=== PATIENT | male | born 1935 | race Caucasian/White ===

== ENCOUNTER 2016-03-23 18:06 | Emergency (ER) | payer MEDICARE, BC ==
[2015-12-24 13:00] VITALS: BMI 26.9
[~2016-03-23 18:06] MED LIST: ACETAMINOPHEN325 MG PO; ALDACTONE25 MG PO; ASPIRIN325 MG PO; ATROVENT 0.06%15 ML NS; BAYER CHEWABLE81 MG PO; CLARITIN 10 MG10 MG PO; COLACE100 MG PO; FERROUS SULFAT325 MG PO; FLUTICASONE PRO16 GM NS; GAVISCON LIQUI355 ML PO; GLUCOPHAGE500 MG PO; HYDROCODONE-APA1 TAB PO; IMDUR60 MG PO; K-DUR20 MEQ PO; LASIX40 MG PO; LISINOPRIL10 MG PO; METOPROLOL TART50 MG PO; MULTIPLE VITAMI1 TA1 PO; NITRO-DUR0.6 MG TD; NITRO-DUR0.6 MG TRANSDERM; NITROQUICK0.4 MG SL; NORCO 5/325 TAB1 TA1 PO; NORVASC5 MG PO; OYSCO 500+D TAB1 TAB PO; PLAVIX75 MG PO; PRAVACHOL40 MG PO; PREDNISONE1 MG PO; PREDNISONE10 MG PO; PREDNISONE5 MG PO; PRINZIDE 20-251 TA1 PO; PROTONIX40 MG PO; RANEXA500 MG PO; TOPROL XL50 MG PO; TYLENOL325 MG PO; VITAMIN B COMPL1 TA1; VITAMIN B COMPL1 TAB PO; ZESTORETIC 10/11 TAB PO; ZESTORETIC 20/21 TAB PO
[2016-03-23 19:37] LABS: APPEARANCE CLEAR (CLEAR); BILIRUBIN NEGATIVE (NEGATIVE); COLOR YELLOW (YELLOW); GLUCOSE NEGATIVE (NEGATIVE); KETONE NEGATIVE (NEGATIVE); LEUKOCYTE ESTERASE NEGATIVE (NEGATIVE); NITRITE NEGATIVE (NEGATIVE); PROTEIN TRACE mg/dL (NEGATIVE); SPECIFIC GRAVITY 1.015 (1.005-1.020); UROBILINOGEN NORMAL (NORMAL)
[2016-03-23 19:39] LABS: BASOPHILS 0.3 % (0.0-2.0); EOSINOPHILS 2.4 % (0-7); HEMATOCRIT 32.7 % (42.0-54.0); HEMOGLOBIN 10.9 g/dL (13.5-17.5); IMMATURE GRANULOCYTES 0.5 % (0-5); LYMPHOCYTES 9.4 % (15-50); MCH 31.1 pg (26.0-34.0); MCHC 33.3 g/dL (31.0-37.0); MCV 93.4 fL (80.0-100.0); MEAN PLATELET VOLUME 9.6 fL (7.4-10.4); MONOCYTES 13.9 % (2-11); NEUTROPHILS 73.5 % (40-80); PLATELET COUNT 264 10x3/uL (130-400); RDW 13.8 % (11.5-14.5); WBC 10.7 10x3/uL (4.8-10.8)
[2016-03-23 19:58] LABS: ALBUMIN 3.6 g/dL (3.4-5.0); ANION GAP 12.5 mmol/L (8-16); BILIRUBIN - TOTAL 0.29 mg/dL (0.2-1.3); CARBON DIOXIDE 29.4 mmol/L (21.0-32.0); CREATININE - SERUM 1.6 mg/dL (0.6-1.3); POTASSIUM - SERUM 4.9 mmol/L (3.5-5.1); PROTEIN - SERUM 6.5 g/dL (6.4-8.2)
== END 2016-03-23 20:10 | disposition home or self-care (01) ==
LOC: D.ER 18:06
PROVIDERS: Family Medicine
DX: M94.0 Chondrocostal junction syndrome [Tietze] (principal); I25.10 Atherosclerotic heart disease of native coronary artery without angina pectoris; I42.9 Cardiomyopathy, unspecified; I50.9 Heart failure, unspecified; E11.9 Type 2 diabetes mellitus without complications; I21.4 Non-ST elevation (NSTEMI) myocardial infarction; G47.30 Sleep apnea, unspecified

== ENCOUNTER 2016-04-18 09:11 | Outpatient (CLI) | payer MEDICARE, BC ==
[~2016-04-18] VITALS: Ht 170.2 cm; Wt 79.1 kg
--- NOTE | ~2016-04-18 | HEMODYNAMI ---
PATIENT:TONY OCAMPO MEDICAL RECORD: [id number] : 33 LOCATION:[facility] ADMISSION DATE: 04/18/16 Generatedon:04/18/201615:01 Patient name: TONY OCAMPO Patient #: [id number] SSN: [id number] : 1935 Date of study: 04/18/2016 Page: Of Hemodynamic Procedure Report Patient Data Patient Demographics Procedure consent was obtained First Name: TONY Gender: Male Last Name: TERRENCE : 1935 [facility] Initial: GENE Age: 80 year(s) Patient #: [id number] Race: SSN: [id number] Additional ID: [id number] Contact details Address: [address] [place] [address] [facility] State: [place] City: [facility] Zip code: [address] Past Medical History History of disease Date Diagnosis Comments Peripheral vascular disease Allergies Allergen Reaction Date Comments Reported Penicillins 06/01/2015 Sulfa drugs 06/01/2015 Codeine 06/01/2015 Codeine 12/24/2015 Penicillins 12/24/2015 Sulfa drugs 12/24/2015 Other allergy 04/18/2016 PCN, codeine, Sulfa Admission Admission Data Admission Date: 04/18/2016 Admission Time: 9:11 Height (in.): 67 BSA: 1.91 (m2) Height (cm.): 170.18 BMI: 27.25 (kg/m2) Weight (lbs.): 174 Weight (kg.): 78.93 Lab Results Lab Result Date: 04/18/2016 Lab Result Time: 0:00 Biochemistry Name Units Result Min Max BUN mg/dl 24 --(----)-* 7 18 Creatinine mg/dl 1.4 --(----)*- 0.6 1.3 CBC Name Units Result Min Max Hemoglobin g/dl 9.9 *-(----)-- 13.5 17.5 Procedure Procedure Types Cath Procedure Diagnostic Procedure [facility] w/Coronaries w/Grafts PCI Procedure SVG-BMS/KARINA Initial Miscellaneous Procedures Moderate Sedation up to 15 minutes Procedure Description Procedure Date Procedure Date: 04/18/2016 Procedure Start Time: 14:41 Procedure End Time: 15:00 Procedure Staff Name Function Rao Quach MD Performing Physician Daisha Sanchez RT Scrub Melvi Puga RN Nurse Tom Meier RT Creative Assistant Janeth Zavala RT Monitor Procedure Data Cath Procedure Fluoroscopy Diagnostic fluoroscopy Total fluoroscopy Time: 5.1 time: 5.1 min min Diagnostic fluoroscopy Total fluoroscopy dose: 593 dose: 593 mGy mGy Contrast Material Contrast Material Type Amount (ml) Isovue 300 127 Entry Location Entry Primary Successful Side Size Upsize Upsize Entry Closure Succes sful Closure Location (Fr) 1 (Fr) 2 (Fr) Remarks Device Remarks Femoral Right 5 Fr 6 Fr artery Short Estimated blood loss: 10 ml Diagnostic catheters Device Type Used For End Catheter Placement Cordis 5Fr Pigtail LV Angiography Catheter (MP) Cordis 5Fr JL 4.0 Procedure Catheter (MP) Cordis Infinity 5Fr AR 2 Procedure MOD catheter Procedure Complications No complications Procedure Medications Medication Administration Route Dosage Oxygen NC 2 l/min Heparin Flush Bag added to field 2 bags (1000units/500ml NS) Lidocaine 2% added to field 20 Benadryl I.V. 50 mg Versed I.V. 1 mg Fentanyl I.V. 50 mcg Versed I.V. 1 mg Fentanyl I.V. 50 mcg Heparin Bolus I.V. 4000 units Hemodynamics Rest BSA: 1.91 (m2) HGB: 9.9 (g/dl) O2 Consumption: Estimated: 212.6 (ml/min) O2 Cons umption indexed: Estimated:111.31 (ml/min/m) Heart Rate: 63 (bpm) Pressure Samples Time Site Value (mmHg) Purpose Heart Use Rate(bpm) 14:44 LV 146/27,35 Snapshot 63 14:44 AO 130/11(52) Snapshot 63 Snapshots Pre Cath Intra NCS Post Cath Vital Signs Time Heart Resp SPO2 NIBP (mmHg) Rhythm Pain Sedation Rate (ipm) (%) Status Level (bpm) 14:31:32 65 13 99 154/72(125) NSR 0 (11) 10(A) , No pain 14:35:56 60 16 100 158/73(126) NSR 0 (11) 10(A) , No pain 14:40:14 62 16 100 138/62(109) NSR 0 (11) 9(A) , No pain 14:44:36 62 16 100 128/50(100) NSR 0 (11) 9(A) , No pain 14:48:50 65 18 98 127/70(106) NSR 0 (11) 9(A) , No pain 14:53:04 65 16 99 128/67(96) NSR 0 (11) 9(A) , No pain 14:57:18 65 14 99 130/69(100) NSR 0 (11) 9(A) , No pain 14:58:55 66 16 99 123/62(93) NSR 0 (11) 9(A) , No pain Medications Time Medication Route Dose Verified Delivered Reason Notes Effectiveness by by 14:35:00 Oxygen NC 2 Rao Melvi Per physician l/min Main Puga RN 14:35:08 Heparin Flush added 2 Rao Rao used for Bag to bags Main Quach MD procedure (1000units/500ml field NS) 14:35:13 Lidocaine 2% added 20ml Rao Rao used for to vial Main Quach MD procedure field 14:35:23 Benadryl I.V. 50 mg Rao Rao Per physician Main Quach MD 14:35:34 Versed I.V. 1 mg Rao Melvi for sedation Main Puga RN 14:35:40 Fentanyl I.V. 50 Rao Melvi for sedation mcg Main Puga RN 14:38:52 Versed I.V. 1 mg Rao Melvi for sedation Main Puga RN 14:38:55 Fentanyl I.V. 50 Rao Melvi for sedation mcg Main Puga RN 14:52:16 Heparin Bolus I.V. 4000 Rao Melvi for dose units Main Puga RN anticoagulation verified with dr quach Procedure Log Time Note 14:24:01 Patient Height : 170.18 inches 14:24:11 Patient Weight : 78.93 lbs 14:24:35 Lab Result : Creatinine 1.4 mg/dl 14:24:35 Lab Result : BUN 24 mg/dl 14:24:35 Lab Result : Hemoglobin 9.9 g/dl 14:25:14 Diagnostic Cath status Elective 14:25:21 Tom Meier RT(R) sent for patient. Start room use. 14:25:24 Time tracking: Regular hours 14:25:29 Plan of Care:Hemodynamics will remain stable., Cardiac rhythm will remain stable., Comfort level will be maintained., Respiratory function will remain adequate., Patient/ family verbilizes understanding of procedure., Procedure tolerated without complication., Recovers from procedure without complications.. 14:30:14 Vital chart was started 14:32:56 Patient received from Outpatients to CCL 1 Alert and oriented. Tansferred to table in Supine position. 14:32:58 Warm blankets applied, and perla hugger turned on for patient comfort. 14:32:58 Correct patient and procedure confirmed by team. 14:33:02 Signed procedure consent form obtained from patient. 14:33:03 ECG and BP/O2 sat monitors applied to patient. 14:33:05 Baseline sample Acquired. 14:33:09 Rhythm: sinus rhythm 14:33:11 Full Disclosure recording started 14:33:24 H&P Date Dictated: 04/16/2016 Within 30 days and on chart., H&P Addendum completed by physician on day of procedure. (MUST COMPLETE FOR ALL OUTPATIENTS). 14:33:27 Pre-procedure instructions explained to patient. 14:33:29 Family in waiting room. 14:33:31 Patient NPO since Midnight. 14:33:52 Patient allergic to Other allergyPCN, codeine, Sulfa 14:33:58 Is the patient allergic to Iodine/contrast media? No. 14:34:05 Is patient on blood thinner?Yes 14:34:22 ACC The patient was administered the following blood thiners within the last 24 hours: ACCPlavix 14:34:23 Patient diabetic? Yes. 14:34:25 If diabetic: On Metformin? No 14:34:35 Snore? Yes 14:34:36 Sleep apnea? Unknown 14:34:38 Deviated septum? No 14:34:40 Opens mouth fully? Yes 14:34:47 Dentures? Unknown ? 14:34:50 Patient pain scale 0/10 ?. 14:35:00 Oxygen 2 l/min NC was given by Mlevi Portland RN; Per physician; 14:35:00 IV patent on arrival in left hand with 0.9% NaCl at [facility]. 14:35:08 Heparin Flush Bag (1000units/500ml NS) 2 bags added to field was given by Rao Quach MD; used for procedure; 14:35:08 Lab results completed and on chart. 14:35:12 Right groin area was prepped with chlora-prep and draped in sterile fashion 14:35:13 Lidocaine 2% 20ml vial added to field was given by Rao Quach MD; used for procedure; 14:35:16 Alarms reviewed by R. N. 14:35:18 Sharps counted by scrub and verified by R.N. 14:35:20 Physician arrived 14:35:21 --------ALL STOP TIME OUT------ 14:35:21 Final Timeout: patient, procedure, and site verified with staff and physician. All members of the team are in agreement. 14:35:23 Benadryl 50 mg I.V. was given by Rao Quach MD; Per physician; 14:35: Right groin site verified by team. 14:35:34 Versed 1 mg I.V. was given by Melvi Puga RN; for sedation; 14:35:34 Physical assessment completed. ASA score P 2 - A patient with mild systemic disease as per Rao Quach MD. 14:35:39 Sedation plan: IV Moderate Sedation Versed, Fentanyl 14:35:40 Fentanyl 50 mcg I.V. was given by Melvi Puga RN; for sedation; 14:38:52 Versed 1 mg I.V. was given by Melvi Puga RN; for sedation; 14:38:55 Fentanyl 50 mcg I.V. was given by Melvi Puga RN; for sedation; 14:41:23 Use device set Femoral Dx 14:41:26 Procedure started. 14:41:32 Local anesthetic to right femoral artery with Lidocaine 2% by Rao Quach MD.INITIAL ACCESS ONLY 14:41:44 Acist Syringe opened to sterile field. 14:41:45 Bag Decanter opened to sterile field. 14:41:45 Cardinal Cath Pack opened to sterile field. 14:41:46 Terumo 5Fr [place] Sheath opened to sterile field. 14:41:46 St Carlos 260cm J .035 wire opened to sterile field. 14:41:48 Acist Hand Control opened to sterile field. 14:41:48 Acist Manifold opened to sterile field. 14:41:54 Tegaderm 4 x 4 opened to sterile field. 14:43:05 A 5 Fr sheath was inserted into the Right Femoral artery 14:44:02 A Cordis 5Fr Pigtail Catheter (MP) was advanced over the wire and used for LV Angiography. 14:44:08 LV hemodynamics recorded. 14:44:14 LV gram done using HOUGH 14:45:06 EF : 55 % 14:45:09 Catheter removed. 14:45:29 A Cordis 5Fr JL 4.0 Catheter (MP) was advanced over the wire and used for Procedure. 14:47:23 A Cordis Infinity 5Fr AR 2 MOD catheter was advanced over the wire and used for Procedure. 14:48:15 RCA angiography performed. 14:49:12 SVG to RCA angiography performed. 14:50:08 Terumo 6Fr [place] Sheath opened to sterile field. 14:50:08 Atmail BasixCompak Inflation Kit opened to sterile field. 14:50:09 Smiley Whisper J 300cm 0.014 guide wire opened to sterile field. 14:50:17 Catheter exchanged over wire. 14:50:34 Sheath upsized to a 6 Fr Short. 14:50:59 6 Fr MB1 guide catheter was inserted over the wire 14:51:09 Medtronic Launcher 6Fr MB 1 guide catheter opened to sterile field. 14:51:43 Whisper wire advanced. 14:52:16 Heparin Bolus 4000 units I.V. was given by Melvi Puga RN; for anticoagulation; dose verified with dr quach 14:52:25 Wire advanced across lesion. 14:55:10 Inflation Number: 1 A Medtronic Resolute 4.0 X 18 stent was prepped and advanced across the Mid RCA. The stent was deployed at 21 NILAM for 0:10 (min:sec). 14:57:34 Vascade 6/7 Fr Closure Device opened to sterile field. 14:57:41 Guide catheter removed. 14:57:55 Procedure ended.(Physican Out) 14:58:14 Fluoroscopy time 05.10 minutes. 14:58:20 Fluoroscopy dose: 593 mGy 14:58:20 Flurop Dose total: 593 14:58:25 Contrast amount:Isovue 300 127ml. 14:58:26 Sharps counted by scrub and verified by R.N. 14:58:28 Insertion/operative site no bleeding no hematoma. 14:58:33 Post-procedure physical assessment completed. ASA score P 2 - A patient with mild systemic disease as per Rao Quach MD. 14:58:38 Post procedure rhythm: unchanged. 14:58:40 Estimated blood loss: 10 ml 14:58:42 Post procedure instruction explained to patient.Patient verbalizes understanding. 14:59:13 Procedure type changed to Cath procedure, Diagnostic procedure, LHC, LHC w/Coronaries w/Grafts, PCI procedure, SVG-BMS/KARINA Initial, Miscellaneous Procedures, Moderate Sedation up to 15 minutes 14:59:18 Procedure and supply charges have been captured, reviewed, submitted and are correct. 14:59:47 Procedure Complication : No complications 14:59:51 Vital chart was stopped 14:59:53 See physician's report for complete and final results. 15:00:05 Report given to Outpatients. 15:00:09 Patient transfered to Outpatients with Stretcher. 15:00:11 Procedure ended. 15:00:11 Full Disclosure recording stopped 15:00:18 End room use (Document Last) 15:00:18 End room use (Document Last) Intervention Summary Intervention Notes Time ActionType Lesion and Equipment Action# Pressure Duration Attributes Used 14:55:10 Place stent Mid RCA Medtronic 1 21 00:10 Resolute 4.0 X 18 stent Device Usage Item Name Manufacture Quantity Catalog Hospital Part Current [facility] l Lot# / Number Charge Number Stock Stock Serial# Code Acist Acist 1 [id number] 075850 361398 091303 20 Syringe Medical Systems Inc Bag Microtek 1 2002S 779787 14167 720316 5 Tapatap. Cardinal Cardinal [address] 510524 61471 491049 5 [place] Terumo 5Fr Terumo 1 [id number] 344981 038354 692447 [address] Carlos 1 319579 788978 630315 347642 30 260cm J .035 wire Acist Hand Acist 1 28128 459646 127766 484396 5 Control Medical Systems Inc Acist Acist 1 68692 822678 239357 449086 5 Alex and Ani Medical Systems Inc Tegaderm 4 3M 1 1626W 610234 150519 642884 5 x 4 Cordis Cardinal 1 FR7191 388954 90314 879655 30 Infinity Health 5Fr Multipack catheter Cordis 5Fr Cardinal 1 962780 5 3DRC Health Catheter (MP) Cordis 5Fr Cardinal 1 124463 5 Pigtail Health Catheter (MP) Cordis 5Fr Cardinal 1 531954 5 JL 4.0 Health Catheter (MP) Cordis Cardinal 1 [id number] 331606 851141 728243 20 Infinity Health 5Fr AR 2 MOD catheter Terumo 6Fr Terumo 1 [id number] 253203 401651 470806 40 [place] Sheath Merit Merit 1 [id number] 695737 942978 128041 15 BasixCoContestk Medical Inflation Kit Smiley Smiley 1 [id number] 205119 426265 516819 5 Whisper J Vascular 300cm 0.014 guide wire Medtronic Medtronic 1 [id number] 913078 57601 752110 1 Launcher 6Fr MB 1 guide catheter Medtronic Medtronic 1 [id number] 316620 810737 0 [id number] Resolute 4.0 X 18 stent Vascade 08/20 Cardiva 1 [id number] 315162 184977 100086 5 Fr Closure Medical, Device Inc. Signature Audit [place] Stage Time Signature Unsigned Intra-Procedure 04/18/2016 Janeth Zavala 3:00:57 PM RT(R) Signatures Monitor : Janeth Zavala Signature : RT Date : Time : [facility] [address] [place] [address]
[2016-04-18 11:02] LABS: BASOPHILS 0.4 % (0.0-2.0); EOSINOPHILS 3.1 % (0-7); HEMATOCRIT 30.6 % (42.0-54.0); HEMOGLOBIN 9.9 g/dL (13.5-17.5); IMMATURE GRANULOCYTES 0.2 % (0-5); LYMPHOCYTES 8.4 % (15-50); MCH 30.8 pg (26.0-34.0); MCHC 32.4 g/dL (31.0-37.0); MCV 95.3 fL (80.0-100.0); MEAN PLATELET VOLUME 9.5 fL (7.4-10.4); NEUTROPHILS 78.9 % (40-80); RBC 3.21 10x6/uL (4.20-6.10); RDW 13.7 % (11.5-14.5); WBC 8.1 10x3/uL (4.8-10.8)
[2016-04-18 11:05] LABS: PLATELET COUNT 202 10x3/uL (130-400)
[2016-04-18 11:12] LABS: ANION GAP 12.2 mmol/L (8-16); CALCIUM 9.4 mg/dL (8.5-10.1); CARBON DIOXIDE 28.2 mmol/L (21.0-32.0); CREATININE - SERUM 1.4 mg/dL (0.6-1.3); POTASSIUM - SERUM 4.4 mmol/L (3.5-5.1)
[2016-04-18 12:27] VITALS: BP 128/64; Ht 170.2 cm; Wt 79.1 kg
--- NOTE | 2016-04-18 17:25 | NUR ---
1515 BACK FROM HEART CATH STENT. SLEEPY BUT ROUSES. RESP EVEN AND NONLABORED. RT GROIN DRESSING C/D/I NO BLEEDING PPX2 LEFT WEAK.
--- NOTE | 2016-04-18 17:46 | NUR ---
1715 RT GROIN DRESSING C/D/I NO BLEEDING OR HEMATOMA PPX2 RT.
--- NOTE | 2016-04-18 17:46 | NUR ---
2525 RT GROIN DRESSING C/D/I NO BLEEDING PPX2. AREA SOFT TO TOUCH. TOLERATING DIET AND LIQUIDS.-
--- NOTE | 2016-04-18 18:10 | NUR ---
1800 TOLERATED DIET REQUESTED COFFEE AND SERVED. KEEPING RT LEG STRAIGHT AREA SOFT NO BLEEDING OR HEMATOMA PPX2.
--- NOTE | 2016-04-18 19:04 | NUR ---
1845 HOB ELVATED. IV DCD CATHETER INTACT WENT OVER DISCHARGE INSTRUCTIONS AND VERBALLY UNDERSTANDS.1900 UP AND VOIDED.
--- NOTE | 2016-04-18 19:15 | NUR ---
1915 TO HOME VIA W/C WITH FAMILY.
--- NOTE | 2016-04-24 13:59 | OP ---
PATIENT NAME: TONY OCAMPO MEDICAL RECORD: [id number] :33 LOCATION:[facility] ADMISSION DATE: SURGEON: DAVINA MOONEY MD DATE OF OPERATION: 04/18/2016 PROCEDURES: 1. PTCA stent, vein graft to the RCA. 2. Left heart catheterization. 3. Selective coronary angiography. 4. Left ventriculogram. 5. Vein graft angiography. INDICATION: Angina and coronary artery disease. PROCEDURE IN DETAIL: After informed consent was obtained and after detailed explanation of risks, benefits as well as alternative therapies, the patient elected to proceed with angiogram and angioplasty. The right femoral area was prepped and draped in normal sterile fashion. The right femoral artery was cannulated via modified Seldinger technique with placement of 6-Jordanian sheath. All catheters exchanged through this sheath. FINDINGS: The left ventriculogram was performed in standard 30-degree HOUGH view, reveals preserved cardiac wall motion, ejection fraction of 50%. SELECTIVE CORONARY ANGIOGRAPHY: 1. Left main showed no significant angiographic disease. 2. Left anterior descending is totally occluded after the first diagonal, first diagonal is widely patent. 3. Left circumflex is totally occluded. 4. Vein graft to the circumflex is totally occluded. 5. Vein graft to the LAD is widely patent with no significant disease. 6. Right coronary is totally occluded. 7. Vein graft to the right coronary is widely patent; however, there is 70% to 80% stenosis in the proximal shaft. The previously placed stents are widely patent. PTCA STENT OF THE RIGHT CORONARY VEIN GRAFT: The stent used of 4.0 x 18 mm Resolute taken to 21 atmospheres. Result was 0% residual stenosis. OVERALL IMPRESSION: Successful percutaneous transluminal coronary angioplasty stent of the vein graft to the right coronary artery going from 70% to 80% initial stenosis to 0% residual. TRANSINT:[id number] Voice Confirmation ID: [id number] DOCUMENT ID: [id number] DAVINA MOONEY MD at 1359 CC: [id number] DICTATION DATE: 04/18/16 1459 CARPENTRY INSTRUCTOR: 04/18/162031 DEP CLI 04/18/16 [place] [id number]
== END 2016-04-18 19:15 | disposition home or self-care (01) ==
LOC: D.CATH 09:11
PROVIDERS: Internal Medicine Interventional Cardiology
DX: I25.119 Atherosclerotic heart disease of native coronary artery with unspecified angina pectoris (principal); I25.719 Atherosclerosis of autologous vein coronary artery bypass graft(s) with unspecified angina pectoris
CPT/HCPCS: 93459; C9604

== ENCOUNTER 2016-04-27 16:22 | Observation (INO) | payer MEDICARE, BC ==
[~2016-04-27] VITALS: Ht 170.2 cm; Wt 70.9 kg
--- NOTE | ~2016-04-27 | HEMODYNAMI ---
PATIENT:TONY OCAMPO MEDICAL RECORD: [id number] : 33 LOCATION[id number] ADMISSION DATE: 04/27/16 Generatedon:04/28/201616:32 Patient name: TONY OCAMPO Patient #: [id number] SSN: [id number] : 1935 Date of study: 04/28/2016 Page: Of Hemodynamic Procedure Report Patient Data Patient Demographics Procedure consent was obtained First Name: TONY Gender: Male Last Name: TERRENCE : 1935 [facility] Initial: GENE Age: 80 year(s) Patient #: [id number] Race: SSN: [id number] Additional ID: [id number] Contact details Address: [address] [place] [address] [facility] State: [place] City: [facility] Zip code: [address] Past Medical History History of disease Date Diagnosis Comments Peripheral vascular disease Allergies Allergen Reaction Date Comments Reported Penicillins 06/01/2015 Sulfa drugs 06/01/2015 Codeine 06/01/2015 Codeine 12/24/2015 Penicillins 12/24/2015 Sulfa drugs 12/24/2015 Other allergy 04/18/2016 PCN, codeine, Sulfa Penicillins 04/28/2016 Sulfa drugs 04/28/2016 Codeine 04/28/2016 Admission Admission Data Admission Date: 04/27/2016 Admission Time: 18:50 Room #: D.2120 Lab Results Lab Result Date: 04/28/2016 Lab Result Time: 0:00 Biochemistry Name Units Result Min Max BUN mg/dl 31 --(----)-* 7 18 Creatinine mg/dl 1.6 --(----)-* 0.6 1.3 CBC Name Units Result Min Max Hemoglobin g/dl 10.3 *-(----)-- 13.5 17.5 Procedure Procedure Types Cath Procedure Diagnostic Procedure LHC LHC w/Coronaries w/Grafts Procedure Description Procedure Date Procedure Date: 04/28/2016 Procedure Start Time: 16:04 Procedure End Time: 16:30 Procedure Staff Name Function Adirel White MD Performing Physician Jnaeth Zavala RT Scrub Melvi Puga RN Nurse Jovan Gutierrez RT Monitor Alvin Montgomery RN Monitor Procedure Data Cath Procedure Fluoroscopy Diagnostic fluoroscopy Total fluoroscopy Time: 5.6 time: 5.6 min min Diagnostic fluoroscopy Total fluoroscopy dose: dose: 547.72 mGy 547.72 mGy Contrast Material Contrast Material Type Amount (ml) Isovue 300 83 Entry Location Entry Primary Successful Side Size Upsize Upsize Entry Closure Succes sful Closure Location (Fr) 1 (Fr) 2 (Fr) Remarks Device Remarks Femoral Right 5 Fr Exoseal artery Diagnostic catheters Device Type Used For End Catheter Placement Cordis 5Fr JL 4.0 Left Coronary Catheter (MP) Angiography Cordis Infinity 5Fr AR SVG Angiography MOD Catheter Cordis Infinity 5Fr IM SVG Angiography catheter Cordis 5Fr Pigtail LV Angiography Catheter (MP) Procedure Complications No complications Procedure Medications Medication Administration Route Dosage Oxygen NC 2 l/min Heparin Flush Bag added to field 2 bags (1000units/500ml NS) 0.9% NaCl I.V. 100 ml/hr Fentanyl I.V. 50 mcg Versed I.V. 1 mg Versed I.V. 0.5 mg Fentanyl I.V. 25 mcg Fentanyl I.V. 25 mcg Versed I.V. 0.5 mg Hemodynamics Rest HGB: 10.3 (g/dl) Heart Rate: 60 (bpm) Pressure Samples Time Site Value (mmHg) Purpose Heart Use Rate(bpm) 16:23 LV 142/23,32 EDP 66 16:24 AO 134/59(88) Pullback 66 Gradients Valve Time Site Site 2 Mean SEP/DFP Peak To Heart Use 1 (mmHg) (sec/min) Peak Rate (mmHg) (bpm) Aortic 16:24 LV AO 9 22 66 134/59(88) Calculations Valve P-P Mean Valve Index Valve Source Name Gradient Area Flow (cm2) Aortic 9 9 Snapshots Pre Cath Intra NCS Post Cath Vital Signs Time Heart Resp SPO2 NIBP (mmHg) Rhythm Pain Sedation Rate (ipm) (%) Status Level (bpm) 15:46:29 61 17 100 157/71(127) NSR 0 (11) 10(A) , No pain 15:50:56 60 16 100 144/72(122) NSR 0 (11) 10(A) , No pain 15:55:20 62 17 100 155/75(127) NSR 0 (11) 10(A) , No pain 15:59:17 63 16 100 126/86(109) NSR 0 (11) 10(A) , No pain 16:03:27 62 17 98 125/73(110) NSR 0 (11) 10(A) , No pain 16:07:37 59 17 98 142/71(116) NSR 0 (11) 9(A) , No pain 16:11:53 67 18 96 126/74(118) NSR 0 (11) 9(A) , No pain 16:17:00 70 17 96 142/62(106) NSR 0 (11) 9(A) , No pain 16:21:19 68 18 96 129/65(94) NSR 0 (11) 9(A) , No pain 16:25:30 68 18 98 133/69(98) NSR 0 (11) 9(A) , No pain 16:29:42 66 6 152/74(110) NSR 0 (11) 9(A) , No pain Medications Time Medication Route Dose Verified Delivered Reason Notes Effec tiveness by by 16:00:21 Oxygen NC 2 Melvi Melvi Per l/min Edd Puga RN physician RN 16:00:32 Heparin Flush added 2 Melvi Melvi used for Bag to bags Edd Puga RN procedure (1000units/500ml field RN NS) 16:00:57 0.9% NaCl I.V. 100 Melvi Melvi Per ml/hr Edd Puga RN physician RN 16:01:14 Fentanyl I.V. 50 Melvi Melvi for mcg Edd Puga RN sedation RN 16:01:21 Versed I.V. 1 mg Melvi Melvi for Edd Puga RN sedation RN 16:04:16 Versed I.V. 0.5 Melvi Melvi for mg Edd Puga RN sedation RN 16:04:23 Fentanyl I.V. 25 Melvi Melvi for mcg Edd Puga RN sedation RN 16:11:19 Fentanyl I.V. 25 Melvi Melvi for mcg Edd Puga RN sedation RN 16:11:26 Versed I.V. 0.5 Melvi Melvi for mg Edd Puga RN sedation surveying technician Log Time Note 15:15:12 Janeth Zavala RT(R) sent for patient. Start room use. 15:45:07 ACC Patient presents with Unstable Angina CCS Anginal Class 3--Marked limitation of physical activity, angina occurs with ordinary activity.. 15:45:09 Diagnostic Cath status Urgent 15:45:10 Vital chart was started 15:45:19 Time tracking: Regular hours 15:45:26 Plan of Care:Hemodynamics will remain stable., Cardiac rhythm will remain stable., Comfort level will be maintained., Respiratory function will remain adequate., Patient/ family verbilizes understanding of procedure., Procedure tolerated without complication., Recovers from procedure without complications.. 15:45:30 Patient received from PCU to CCL 3 Alert and oriented. Tansferred to table in Supine position. 15:45:31 Warm blankets applied, and perla hugger turned on for patient comfort. 15:45:32 Correct patient and procedure confirmed by team. 15:45:33 Signed procedure consent form obtained from patient. 15:45:35 ECG and BP/O2 sat monitors applied to patient. 15:45:36 Baseline sample Acquired. 15:45:39 Rhythm: sinus rhythm 15:45:40 Full Disclosure recording started 15:45:47 H&P Date Dictated: 04/27/2016 Within 30 days and on chart.. 15:45:48 Pre-procedure instructions explained to patient. 15:45:48 Pre-op teaching completed and patient verbalized understanding. 15:45:50 Family in waiting room. 15:45:51 Patient NPO since Midnight. 15:47:51 Patient allergic to Penicillins 15:47:56 Patient allergic to Sulfa drugs 15:48:01 Patient allergic to Codeine 15:48:06 Is the patient allergic to Iodine/contrast media? No. 15:48:10 Is patient on blood thinner?Yes 15:48:12 ACC The patient was administered the following blood thiners within the last 24 hours: ACCPlavix 15:52:21 Patient diabetic? No. 15:52:22 ----Pre-sedation anethsthesia assessment.---- 15:52:24 Previous problem with sedation/anesthesia? No ? 15:52:26 Snore? Yes 15:52:27 Sleep apnea? Yes 15:52:28 Deviated septum? No 15:52:30 Opens mouth fully? Yes 15:52:31 Sticks out tongue? Yes 15:52:33 Airway obstruction? Yes ? 15:52:41 Dentures? Yes in tight 15:52:45 Pre procedure: right dorsailis pedis pulse 1+ Palpable, but thready & weak; easily obliterated 15:53:25 Patient pain scale 0/10 ?. 15:53:57 Lab Result : BUN 31 mg/dl 15:53:57 Lab Result : Creatinine 1.6 mg/dl 15:53:57 Lab Result : Hemoglobin 10.3 g/dl 15:54:01 Lab results completed and on chart. 15:54:03 Right groin area was prepped with chlora-prep and draped in sterile fashion 15:54:04 Alarms reviewed by R. N. 15:54:05 Sharps counted by scrub and verified by R.N. 15:54:06 --------ALL STOP TIME OUT------ 15:54:07 Final Timeout: patient, procedure, and site verified with staff and physician. All members of the team are in agreement. 15:54:08 Right groin site verified by team. 15:54:11 Physical assessment completed. ASA score P 2 - A patient with mild systemic disease as per Adriel White MD. 15:54:15 Sedation plan: IV Moderate Sedation Versed, Fentanyl 15:55:56 Use device set Femoral Dx 15:55:56 Acist Syringe opened to sterile field. 15:55:57 Bag Decanter opened to sterile field. 15:55:57 Medline Cath Pack opened to sterile field. 15:55:58 Terumo 5Fr [place] Sheath opened to sterile field. 15:55:58 St Carlos 260cm J .035 wire opened to sterile field. 15:56:00 Acist Hand Control opened to sterile field. 15:56:00 Acist Manifold opened to sterile field. 15:56:01 Cordis Infinity 5Fr Multipack catheter opened to sterile field. 15:56:02 Tegaderm 4 x 4 opened to sterile field. 15:58:09 Zero performed for pressure channel P1 15:59:25 IV started by Melvi Puga RN inleft antecubital with a 22 gauge IV catheter with 0.9% NaCl at 10ml/hr. 16:00:21 Oxygen 2 l/min NC was given by Melvi Puga RN; Per physician; 16:00:32 Heparin Flush Bag (1000units/500ml NS) 2 bags added to field was given by Melvi Puga RN; used for procedure; 16:00:57 0.9% NaCl 100 ml/hr I.V. was given by Melvi Puga RN; Per physician; 16:01:14 Fentanyl 50 mcg I.V. was given by Melvi Puga RN; for sedation; 16:01:21 Versed 1 mg I.V. was given by Melvi Puga RN; for sedation; 16:01:49 IV Extension Set opened to sterile field. 16:02:04 STOPCOCK 3-WAY LARGE BORE opened to sterile field. 16:02:39 alvin in for melvi 16:04:16 Versed 0.5 mg I.V. was given by Melvi Puga RN; for sedation; 16:04:16 Procedure started. 16:04:23 Fentanyl 25 mcg I.V. was given by Melvi Puga RN; for sedation; 16:04:30 Local anesthetic to right femoral artery with Lidocaine 2% by Adriel White MD.INITIAL ACCESS ONLY 16:04:38 A 5 Fr sheath was inserted into the Right Femoral artery 16:09:23 A Cordis 5Fr JL 4.0 Catheter () was advanced over the wire and used for Left Coronary Angiography. 16:09:55 LCA angiography performed. 16:11:05 Catheter removed. 16:11:19 Fentanyl 25 mcg I.V. was given by Melvi Puga RN; for sedation; 16:11:26 Versed 0.5 mg I.V. was given by Melvi Puga RN; for sedation; 16:12:01 A Cordis Infinity 5Fr AR MOD Catheter was advanced over the wire and used for SVG Angiography. 16:19:58 SVG to RCA angiography performed. 16:20:00 RCA angiography performed. 16:20:05 SVG angiography performed. 16:20:09 Catheter removed. 16:20:19 A Cordis Infinity 5Fr IM catheter was advanced over the wire and used for SVG Angiography. 16:20:51 injecting the CARLOS 16:23:25 Catheter removed. 16:23:31 A Cordis 5Fr Pigtail Catheter (MP) was advanced over the wire and used for LV Angiography. 16:23:35 LV angiography performed. 16:23:36 LV hemodynamics recorded. 16::41 Injector settings: Ml/sec: 5, Volume: 15, 16:23:55 EF : 50 % 16:24:14 Catheter removed. 16:24:39 Sheath removed intact; hemostasis achieved with Exoseal to the Right Femoral artery. 16::41 Procedure ended.(Physican Out) 16:24:50 Fluoroscopy time 05.60 minutes. 16:24:58 Flurop Dose total: 547.72 16:24:58 Fluoroscopy dose: 547.72 mGy 16:28:29 Contrast amount:Isovue 300 83ml. 16:28:45 Sharps counted by scrub and verified by R.N. 16:28:48 Insertion/operative site no bleeding no hematoma. 16:28:50 Post-op/insertion site Right Femoral artery dressed using a 4 x 4 and Tegaderm. 16:28:54 Post right femoral artery:stable 16:28:57 Post Procedure Pulses reassessed and unchanged 16:28:59 Post procedure: left dorsailis pedis pulse 0-Absent. 16:29:00 Post procedure: right dorsailis pedis pulse 1+ Palpable, but thready & weak; easily obliterated. 16:29:04 Post procedure rhythm: sinus rhythm 16:29:06 Post procedure instruction explained to patient.Patient verbalizes understanding. 16:30:07 Cordis 5Fr Exoseal opened to sterile field. 16:30:11 Procedure and supply charges have been captured, reviewed, submitted and are correct. 16:30:41 Procedure Complication : No complications 16:30:44 Vital chart was stopped 16:30:46 See physician's report for complete and final results. 16:30:48 Report given to PCU. 16:30:50 Patient transfered to PCU with Bed. 16:30:52 Procedure ended. 16:30:52 Full Disclosure recording stopped 16:30:56 End room use (Document Last) Device Usage Item Name Manufacture Quantity Catalog Hospital Part Current Minimal Lot # / Number Charge Number Stock Stock Serial# Code Acist Acist 1 13122 230850 427831 619212 20 Syringe Medical Systems Inc Bag Microtek 1 2002S 394002 57702 369344 5 Decanter [employer] Inc. Medline Cardinal 1 [id number] 908181 82066 864746 5 Cath Pack Health Terumo Terumo 1 [id number] 307841 362635 477744 [address] [place] [address] [facility] 1 710291 042994 349714 795507 30 260cm J .035 wire Acist Acist 1 71189 076891 938905 246943 5 Hand Medical Control Systems Inc Acist Acist 1 35075 266202 924692 846890 5 Manifold Medical Systems Inc Cordis Cardinal 1 [id number] 739691 42637 671046 30 [facility] Health 5Fr Multipack [facility] 1 1626W 047217 120511 228566 5 4 x 4 IV Hospira 1 12605-69 186555 32831 236227 5 Extension Set [facility] 1 [id number] 839669 2429 346407 5 3-WAY LARGE BORE Cordis Cardinal 1 704646 5 5Fr JL Health 4.0 Catheter (MP) Cordis Cardinal 1 [id number] 090217 545069 819164 15 [facility] 5Fr AR MOD Catheter Cordis Cardinal 1 [id number] 848393 987171 177827 5 [facility] 5Fr IM catheter Cordis Cardinal 1 168577 5 5Fr Health Pigtail Catheter (MP) Cordis Cardinal 1 EX500 969820 779418 211843 10 5Fr Health Exoseal Signature Audit [place] Stage Time Signature Unsigned Intra-Procedure 04/28/2016 Jovan Gutierrez 4:32:35 PM RT(R) Signatures Monitor : Jovan Gutierrez RT Signature : Date : Time : Monitor : Alvin Montgomery Signature : RN Date : Time : [place] [address] [place] [address]
[2016-04-27 16:52] LABS: BASOPHILS 0.4 % (0.0-2.0); EOSINOPHILS 3.7 % (0-7); HEMATOCRIT 34.2 % (42.0-54.0); HEMOGLOBIN 11.2 g/dL (13.5-17.5); IMMATURE GRANULOCYTES 0.6 % (0-5); LYMPHOCYTES 15.8 % (15-50); MCH 30.8 pg (26.0-34.0); MCHC 32.7 g/dL (31.0-37.0); MEAN PLATELET VOLUME 9.8 fL (7.4-10.4); MONOCYTES 12.4 % (2-11); NEUTROPHILS 67.1 % (40-80); PLATELET COUNT 222 10x3/uL (130-400); RBC 3.64 10x6/uL (4.20-6.10); RDW 13.3 % (11.5-14.5); WBC 8.1 10x3/uL (4.8-10.8)
[2016-04-27 17:03] LABS: CHLORIDE - SERUM 100 mmol/L (98-107); POTASSIUM - SERUM 4.5 mmol/L (3.5-5.1)
[2016-04-27 17:15] LABS: ALBUMIN 3.3 g/dL (3.4-5.0); ALKALINE PHOSPHATASE 82 U/L (46-116); ALT (SGPT) 21 U/L (10-68); CALC OSMOLALITY 281 mosm/kg (275-300); CALCIUM 8.7 mg/dL (8.5-10.1); CARBON DIOXIDE 26.1 mmol/L (21.0-32.0); CREATININE - SERUM 1.8 mg/dL (0.6-1.3); GLUCOSE 103 mg/dL (74-106); PROTEIN - SERUM 6.3 g/dL (6.4-8.2); SODIUM 137 mmol/L (136-145); UREA NITROGEN 34 mg/dL (7-18); eGFR NON AFRICAN AMERICAN 39 mL/min (90-120)
[2016-04-27 17:27] LABS: AMYLASE - SERUM 102 U/L (25-115); LIPASE 218 U/L (73-393); PRO BNP 866 pg/mL (0-450)
[2016-04-27 17:29] LABS: CKMB 1.1 U/L (0.0-3.6); CREATINE KINASE 44 UL (21-232)
[2016-04-27 17:31] LABS: TROPONIN-I 0.072 ng/mL (0.000-0.060)
[2016-04-27 20:18] VITALS: BP 153/78; Ht 170.2 cm; Wt 70.9 kg
--- NOTE | 2016-04-27 23:09 | NUR ---
PTARRIVED VIA W/C FROM ER AT 1934 HRS WITH FAMILY AT BEDSIDE. PT DENIED ANY DISCOMFORT. VSS. SR PER CM. IV TO R HAND SL. O2 2LNC. LUNGS ESSENTIALLY CTA. ADMISSION ASSESSMENT, HISTORY AND HOME MED REC COMPLETED BY 2100 HRS. PT CURRENTLY RESTING WITH EYES CLOSED. RESP EVEN AND REGULAR. SR UP X2, CALL LIGHT WITHIN IN REACH.
[2016-04-28 00:30] VITALS: BP 115/56
--- NOTE | 2016-04-28 01:39 | NUR ---
PT AWAKE; DENIES ANY DISCOMFORT. EKG DONE. WILL CONTINUE TO MONITOR. SR UP X2, CALL LIGHT WITHIN REACH.
--- NOTE | 2016-04-28 04:16 | NUR ---
PT RESTING WITH EYES CLOSED. RESP EVEN AND REGULAR. SR UP X2, CALL LIGHT WITHIN REACH.
[2016-04-28 04:30] VITALS: BP 125/58
--- NOTE | 2016-04-28 06:19 | NUR ---
VSS THROUGHOUT NIGHT. SR PER CM. PT DENIED ANY DISCOMFORT. PT STATED HE STOPPED TAKING HIS METFORMIN OVER A WEEK AGO. BEFORE HIS [facility] LAST WEEK. NEEDS MET; WILL CONTINUE TO MONITOR.
[2016-04-28 08:03] VITALS: BP 142/59
[2016-04-28 08:31] LABS: ANION GAP 13.7 mmol/L (8-16); CALCIUM 9.2 mg/dL (8.5-10.1); CARBON DIOXIDE 26.5 mmol/L (21.0-32.0); CREATININE - SERUM 1.6 mg/dL (0.6-1.3); POTASSIUM - SERUM 4.2 mmol/L (3.5-5.1)
[2016-04-28 09:09] LABS: BASOPHILS 0.5 % (0.0-2.0); EOSINOPHILS 5.4 % (0-7); HEMATOCRIT 30.5 % (42.0-54.0); HEMOGLOBIN 10.3 g/dL (13.5-17.5); IMMATURE GRANULOCYTES 0.3 % (0-5); LYMPHOCYTES 11.3 % (15-50); MCH 31.8 pg (26.0-34.0); MCHC 33.8 g/dL (31.0-37.0); MCV 94.1 fL (80.0-100.0); MEAN PLATELET VOLUME 9.6 fL (7.4-10.4); MONOCYTES 6.5 % (2-11); PLATELET COUNT 199 10x3/uL (130-400); RBC 3.24 10x6/uL (4.20-6.10); RDW 13.3 % (11.5-14.5); WBC 7.4 10x3/uL (4.8-10.8)
--- NOTE | 2016-04-28 10:19 | NUR ---
SITTING UP IN BED. ALERT AND ORIENTED X4. DENIES PAIN OR SOB. CONSENTS FOR PIG MACHINE CRANE OPERATOR SIGNED ON CHART. FAMILY AT BEDSIDE. SINUS RHYTHM 81bpm ON TELEMETRY. REFUSE SCDs. UP AD JODI. CONTINUE PLAN OF CARE. BED LOCKED AND LOW. CALL LIGHT IN REACH. TWO SIDERAILS UP.
[2016-04-28 12:19] VITALS: BP 112/47
--- NOTE | 2016-04-28 13:26 | NUR ---
ALERT AND ORIENTED X4. RESTING IN BED. FAMILY AT BEDSIDE. SINUS IGNACIO 53bpm ON TELEMETRY. PATIENTLY WAITING TO GO TO RF MICROWAVE ENGINEER. DENIES PAIN OR SOB. CONTINUE PLAN OF CARE AND SAFETY PRECAUTIONS.
--- NOTE | 2016-04-28 15:13 | NUR ---
ALERT AND ORIENTED X4. RESTING IN BED. FAMILY AT BEDSIDE. PRE-OP FOR ANTISQUEAK APPLIER COMPLETE. CONTINUE PLAN OF CARE AND SAFETY PRECAUTIONS.
--- NOTE | 2016-04-28 15:48 | NUR ---
TAKEN TO OPHTHALMIC NURSE VIA BED. CONTINUE PLAN OF CARE AND SAFETY PRECAUTIONS.
--- NOTE | 2016-04-28 16:50 | NUR ---
ALERT AND ORIENTED X4. RETURN TO ROOM FROM POLYSOM TECH. FAMILY AT BEDSIDE. BP-135/71, P-64 SINUS RHYTHM, O2-99% RA. PULSES +1 BILATERAL. NO CHANGE. RT GROIN CLEAN DRY INTACT. NO HEMATOMA. NO BLEEDING. CONTINUE TO MONITOR. CONTINUE PLAN OF CARE. HOB FLAT. BED LOCKED AND LOW. CALL LIGHT IN REACH. TWO SIDERIALS UP.
--- NOTE | 2016-04-29 15:27 | OP ---
PATIENT NAME: TONY OCAMPO MEDICAL RECORD: [id number] :33 LOCATION:D.M2 D.2120 ADMISSION DATE:04/27/16 SURGEON: INDIGO CHAMBERLAIN M.D. DATE OF OPERATION: 04/28/2016 PROCEDURES PERFORMED: 1. Selective coronary angiography. 2. Left heart catheterization with ventriculogram. 3. Bypass angiography. INDICATION: An 80-year-old gentleman presents with recurrent angina and abnormal cardiac enzymes. EQUIPMENT USED: A 5-German JL4, AR modified catheter, pigtail catheter. TECHNIQUE: A 5-German sheath was inserted in retrograde fashion in the right common femoral artery. Next, selective coronary angiography was performed in standard 5-German JL4, AR modified catheters. Left heart catheterization performed using a pigtail catheter. Bypass angiography using the AR modified catheter. CORONARY ANATOMY: 1. Left main: Left main trunk is moderate in caliber. It gives rise to the LAD and circumflex. It has mild irregularities. 2. LAD: This vessel basically has a large diagonal in the proximal segment. The diagonal is widely patent. Continuation of the LAD is a small vessel and has myocardial bridge, but otherwise has no obstruction. 3. Circumflex: This vessel is 100% occluded in the proximal segment. 4. Right coronary: This vessel is 100% occluded in the mid segment. The stent in the proximal mid segment are diffusely diseased. 5. Saphenous vein graft to the PDA: This graft is in the proximal mid body. The stents are widely patent. There is no evidence of restenosis. 6. Saphenous vein graft to the circumflex: This graft is widely patent throughout its course. 7. Left ventricle: Left ventricle is normal in size. The apex is mildly hypokinetic. Estimated ejection is in the order of 50%. IMPRESSION: 1. Severe viejas coronary artery disease. 2. Patent bypass grafts to the circumflex and right coronary artery with no evidence of restenosis. PLAN: We will continue with medical management at this point. TRANSINT:[id number] Voice Confirmation ID: [id number] DOCUMENT ID: [id number] INDIGO CHAMBERLAIN M.D. at 1527 CC: [id number] DICTATION DATE: 04/28/16 1633 CASH CONTROL SPECIALIST: 04/29/16 0034 DIS IN 04/28/16 [facility] [address] [place] [address]
== END 2016-04-28 19:33 | disposition home or self-care (01) ==
LOC: D.ER 16:22 → D.M2 18:50 → OBSVTIME 18:50 → D.M2 18:50
PROVIDERS: Family Medicine; Internal Medicine Cardiovascular Disease; ADMIT Internal Medicine Interventional Cardiology
DX: I25.110 Atherosclerotic heart disease of native coronary artery with unstable angina pectoris (principal); Z95.5 Presence of coronary angioplasty implant and graft; R79.89 Other specified abnormal findings of blood chemistry; I10 Essential (primary) hypertension; E78.5 Hyperlipidemia, unspecified; I73.9 Peripheral vascular disease, unspecified; G47.30 Sleep apnea, unspecified; E11.9 Type 2 diabetes mellitus without complications; Z86.73 Personal history of transient ischemic attack (TIA), and cerebral infarction without residual deficits

== ENCOUNTER 2016-09-28 13:09 | Inpatient (IN) | payer MEDICARE, BC ==
[~2016-09-28] VITALS: Ht 170.2 cm; Wt 72.6 kg
--- NOTE | ~2016-09-28 | DS ---
PATIENT:TONY OCAMPO :33 MEDICAL RECORD: [id number] DISCHARGE SUMMARY ADMISSION DATE: 10/01/16 DISCHARGE DATE: 10/01/16 DISCHARGE SUMMARY PROBLEM LIST: 1. Cardiopulmonary arrest. 2. Coronary artery disease. 3. Percutaneous transluminal coronary angioplasty stent left anterior descending and right coronary artery this admission. 4. Peripheral vascular disease. 5. Claudication. 6. Percutaneous transluminal angioplasty stent both legs this admission. 7. Hypertension. 8. Hyperlipidemia. 9. Acute renal failure. HOSPITAL COURSE: The patient presents with anginal symptomatology and claudication symptomatology. He was found to have significant recurrent coronary artery disease and peripheral vascular disease. He underwent percutaneous transluminal angioplasty stent of his legs and percutaneous transluminal coronary angioplasty stent of his heart times two vessels. He, however, went into acute renal failure and became rapidly acidotic and unstable. He had cardiopulmonary arrest. The family decided to make him a do not resuscitate. He passed on 10/01/2016. DAVINA MOONEY MD CC: [id number] DICTATION DATE: 10/01/16 1200 NEW MEDIA STRATEGIST: ELDON 10/01/16 1411 DIS IN 10/01/16 [facility] [address] [place] [address]
--- NOTE | ~2016-09-28 | HEMODYNAMI ---
PATIENT:TONY OCAMPO MEDICAL RECORD: [id number] : 33 LOCATION[facility] [id number] ADMISSION DATE: 09/28/16 Generatedon:09/29/201613:16 Patient name: TONY OCAMPO Patient #: [id number] SSN: [id number] : 1935 Date of study: 09/29/2016 Page: Of Hemodynamic Procedure Report Patient Data Patient Demographics Procedure consent was obtained First Name: TONY Gender: Male Last Name: TERRENCE : 1935 [facility] Initial: GENE Age: 81 year(s) Patient #: [id number] Race: SSN: [id number] Additional ID: [id number] Contact details Address: [address] [place] [address] [facility] State: [place] City: [facility] Zip code: [address] Past Medical History History of disease Date Diagnosis Comments Peripheral vascular disease Allergies Allergen Reaction Date Comments Reported Penicillins 06/01/2015 Sulfa drugs 06/01/2015 Codeine 06/01/2015 Codeine 12/24/2015 Penicillins 12/24/2015 Sulfa drugs 12/24/2015 Other allergy 04/18/2016 PCN, codeine, Sulfa Penicillins 04/28/2016 Sulfa drugs 04/28/2016 Codeine 04/28/2016 Penicillins 09/29/2016 Sulfa drugs 09/29/2016 Codeine 09/29/2016 Admission Admission Data Admission Date: 09/28/2016 Admission Time: 16:25 Room #: D.2120 Lab Results Lab Result Date: 09/29/2016 Lab Result Time: 0:00 Biochemistry Name Units Result Min Max BUN mg/dl 38 --(----)-* 7 18 Creatinine mg/dl 2 --(----)-* 0.6 1.3 CBC Name Units Result Min Max Hemoglobin g/dl 11.9 *-(----)-- 13.5 17.5 Procedure Procedure Types Cath Procedure Diagnostic Procedure [facility] w/Coronaries w/Grafts FFR/IVUS Intra-Coronary IVUS Initial PCI Procedure SVG-BMS/KARINA Initial Miscellaneous Procedures Moderate Sedation up to 30 minutes Peripheral Cath Diagnostic Procedure Cath Peripheral Jxmhs-Quckvkl-Izr-Off Peripheral vascular Intervention Stent Stent-Fem/Popw/plasty Procedure Description Procedure Date Procedure Date: 09/29/2016 Procedure Start Time: 12:41 Procedure End Time: 13:15 Procedure Staff Name Function Rao Quach MD Performing Physician Tom Meier RT Scrub Melvi Puga RN Nurse Jovan Gutierrez RT Monitor Procedure Data Cath Procedure Fluoroscopy Diagnostic fluoroscopy Total fluoroscopy Time: 9.3 time: 9.3 min min Diagnostic fluoroscopy Total fluoroscopy dose: 829 dose: 829 mGy mGy Contrast Material Contrast Material Type Amount (ml) Isovue 300 164 Entry Location Entry Primary Successful Side Size Upsize Upsize Entry Closure Succes sful Closure Location (Fr) 1 (Fr) 2 (Fr) Remarks Device Remarks Femoral Right 5 Fr 6 Fr 6 Fr Exoseal artery Short Long Diagnostic catheters Device Type Used For End Catheter Placement Cordis 5Fr Pigtail LV Angiography Catheter (MP) Cordis 5Fr JL 4.0 Left Coronary Catheter (MP) Angiography Cordis 5Fr 3DRC Catheter Right Coronary (MP) Angiography Diagnostic Infinity 5Fr SVG Angiography AR 2 MOD catheter Diagnostic 5Fr IMT Catheter Procedure Complications No complications Procedure Medications Medication Administration Route Dosage Oxygen NC 2 l/min Heparin Flush Bag added to field 2 bags (1000units/500ml NS) Lidocaine 2% added to field 20 Versed I.V. 1 mg Fentanyl I.V. 50 mcg Fentanyl I.V. 50 mcg Versed I.V. 1 mg Heparin Bolus I.V. 5000 units Hemodynamics Rest HGB: 11.9 (g/dl) Heart Rate: 58 (bpm) Snapshots Pre Cath Intra NCS Post Cath Vital Signs Time Heart Resp SPO2 etCO2 [id number] NIBP (mmHg) Rhythm Pain Sedation Rate (ipm) (%) (mmHg) (mmHg) Status Level (bpm) 12:28:42 58 15 100 0 0 156/70(124) NSR 0 (11) 10(A) , No pain 12:33:08 57 20 100 0 0 155/70(120) NSR 0 (11) 10(A) , No pain 12:37:32 59 16 99 0 0 115/67(96) NSR 0 (11) 10(A) , No pain 12:41:44 62 16 98 0 0 118/69(96) NSR 0 (11) 9(A) , No pain 12:45:56 63 16 99 0 0 124/65(101) NSR 0 (11) 9(A) , No pain 12:50:10 66 16 98 0 0 120/67(109) NSR 0 (11) 9(A) , No pain 12:54:26 64 18 100 0 0 109/61(96) NSR 0 (11) 9(A) , No pain 12:58:36 65 16 100 0 0 108/65(99) NSR 0 (11) 9(A) , No pain 13:03:35 63 16 100 0 0 Measuring NSR 0 (11) 9(A) , No pain 13:03:37 63 16 100 0 0 104/60(95) NSR 0 (11) 9(A) , No pain 13:07:46 63 16 100 0 0 111/59(85) NSR 0 (11) 10(A) , No pain 13:11:56 65 12 0 0 135/69(104) NSR 0 (11) 10(A) , No pain 13:16:17 64 13 0 0 122/65(101) NSR 0 (11) 10(A) , No pain Medications Time Medication Route Dose Verified Delivered Reason Notes Effectiveness by by 12:27:37 Oxygen NC 2 Rao Melvi Per physician l/min Main Puga RN 12:27:47 Heparin Flush added 2 Rao Rao used for Bag to bags Main Quach MD procedure (1000units/500ml field NS) 12:27:54 Lidocaine 2% added 20ml Raosivan Jacomerey used for to vial Main Quach MD procedure field 12:38:00 Versed I.V. 1 mg Rao Melvi for sedation Main Puga RN 12:38:30 Fentanyl I.V. 50 Rao Melvi for sedation mcg Main Puga RN 12:40:14 Fentanyl I.V. 50 Rao Melvi for sedation mcg Main Puga RN 12:41:00 Versed I.V. 1 mg Rao Melvi for sedation Main Puga RN 12:50:08 Heparin Bolus I.V. 5000 Rao Ogden for dose units Main Puga RN anticoagulation verified with dr quach Procedure Log Time Note 12:10:41 ACC Patient presents with Unstable Angina CCS Anginal Class 3--Marked limitation of physical activity, angina occurs with ordinary activity.. 12:10:43 Diagnostic Cath status Urgent 12:10:45 Jovan Gutierrez RT(R) sent for patient. Start room use. 12:10:47 Time tracking: Regular hours 12:10:52 Plan of Care:Hemodynamics will remain stable., Cardiac rhythm will remain stable., Comfort level will be maintained., Respiratory function will remain adequate., Patient/ family verbilizes understanding of procedure., Procedure tolerated without complication., Recovers from procedure without complications.. 12:25:00 Patient received from PCU to CCL 1 Alert and oriented. Tansferred to table in Supine position. 12:25:01 Warm blankets applied, and perla hugger turned on for patient comfort. 12:25:02 Correct patient and procedure confirmed by team. 12:25:04 Signed procedure consent form obtained from patient. 12:25:06 ECG and BP/O2 sat monitors applied to patient. 12:27:27 Vital chart was started 12:27:37 Oxygen 2 l/min NC was administered by Melvi Puga RN; Per physician; 12:27:47 Heparin Flush Bag (1000units/500ml NS) 2 bags added to field was administered by Rao Quach MD; used for procedure; 12:27:54 Lidocaine 2% 20ml vial added to field was administered by Rao Quach MD; used for procedure; 12:32:05 Baseline sample Acquired. 12:32:08 Rhythm: sinus rhythm 12:32:09 Full Disclosure recording started 12:34:10 H&P Date Dictated: 09/28/2016 Within 30 days and on chart.. 12:34:11 Pre-procedure instructions explained to patient. 12:34:11 Pre-op teaching completed and patient verbalized understanding. 12:34:13 Family in patients room. 12:34:15 Patient NPO since Midnight. 12:34:24 Patient allergic to Penicillins 12:34:32 Patient allergic to Sulfa drugs 12:34:44 Patient allergic to Codeine 12:34:49 Is the patient allergic to Iodine/contrast media? No. 12:35:04 Is patient on blood thinner?Yes 12:35:07 ACC The patient was administered the following blood thiners within the last 24 hours: ACCPlavix 12:36:16 Patient diabetic? Yes. 12:36:18 If diabetic: On Metformin? No 12:36:20 ----Pre-sedation anethsthesia assessment.---- 12:36:21 Previous problem with sedation/anesthesia? No ? 12:36:24 Previous problem with sedation/anesthesia? No ? 12:36:29 Snore? Yes 12:36:31 Sleep apnea? Yes 12:36:35 Deviated septum? No 12:36:37 Opens mouth fully? Yes 12:36:39 Sticks out tongue? Yes 12:36:45 Airway obstruction? No ? 12:36:49 Dentures? Yes in tight 12:36:55 Pre procedure: right dorsailis pedis pulse 1+ Palpable, but thready & weak; easily obliterated 12:36:58 Patient pain scale 0/10 ?. 12:37:02 IV patent on arrival in right hand with 0.9% NaCl at 10ml/hr. 12:37:38 Lab Result : Creatinine 2 mg/dl 12:37:38 Lab Result : BUN 38 mg/dl 12:37:38 Lab Result : Hemoglobin 11.9 g/dl 12:37:41 Lab results completed and on chart. 12:37:44 Right groin area was prepped with chlora-prep and draped in sterile fashion 12:37:45 Alarms reviewed by R. N. 12:37:45 Sharps counted by scrub and verified by R.N. 12:37:46 --------ALL STOP TIME OUT------ 12:37:47 Final Timeout: patient, procedure, and site verified with staff and physician. All members of the team are in agreement. 12:37:48 Right groin site verified by team. 12:37:52 Physical assessment completed. ASA score P 2 - A patient with mild systemic disease as per Rao Quach MD. 12:37:56 Sedation plan: IV Moderate Sedation Versed, Fentanyl 12:38:00 Versed 1 mg I.V. was administered by Melvi Puga RN; for sedation; 12:38:30 Fentanyl 50 mcg I.V. was administered by Melvi Puga RN; for sedation; 12:40:14 Fentanyl 50 mcg I.V. was administered by Melvi Puga RN; for sedation; 12:40:26 Zero performed for pressure channel P1 12:40:48 Use device set Femoral Dx 12:40:50 Acist Syringe opened to sterile field. 12:40:50 Bag Decanter opened to sterile field. 12:40:50 Medline Cath Pack opened to sterile field. 12:40:51 Terumo 5Fr [place] Sheath opened to sterile field. 12:40:51 St Carlos 260cm J .035 wire opened to sterile field. 12:40:53 Acist Hand Control opened to sterile field. 12:40:53 Acist Manifold opened to sterile field. 12:40:53 Diagnostic Infinity 5Fr Multipack catheter opened to sterile field. 12:40:54 Tegaderm 4 x 4 opened to sterile field. 12:40:58 Procedure started. 12:41:00 Versed 1 mg I.V. was administered by Melvi Puga RN; for sedation; 12:41:30 Local anesthetic to right femoral artery with Lidocaine 2% by Rao Quach MD.INITIAL ACCESS ONLY 12:41:38 A 5 Fr sheath was inserted into the Right Femoral artery 12:42:12 A Cordis 5Fr Pigtail Catheter (MP) was advanced over the wire and used for LV Angiography. 12:42:35 LV angiography performed. 12:42:37 LV gram done using HOUGH 12:42:52 EF : 55 % 12:42:57 Abdominal angiogram w/ runoff was performed. 12:43:00 Left leg runoff performed. 12:43:56 Catheter removed. 12:44:01 A Cordis 5Fr JL 4.0 Catheter (MP) was advanced over the wire and used for Left Coronary Angiography. 12:44:18 LCA angiography performed. 12:46:23 Catheter removed. 12:46:30 A Cordis 5Fr 3DRC Catheter (MP) was advanced over the wire and used for Right Coronary Angiography. 12:47:56 Catheter removed. 12:48:06 A Diagnostic Infinity 5Fr AR 2 MOD catheter was advanced over the wire and used for SVG Angiography. 12:48:10 RCA angiography performed. 12:48:15 SVG to LAD angiography performed. 12:48:18 SVG to RCA angiography performed. 12:48:26 Catheter removed. 12:48:34 Terumo 6Fr [place] Sheath opened to sterile field. 12:48:35 Terumo 6Fr [place] Destination Sheath opened to sterile field. 12:48:36 addwish BasixCompak Inflation Kit opened to sterile field. 12:48:37 Smiley Whisper J 300cm 0.014 guide wire opened to sterile field. 12:48:37 KitBoostumContour Innovations Super Stiff Angled 260cm glide wire opened to sterile field. 12:48:38 Hawthornetronic Launcher 6Fr AR 2.0 guide catheter opened to sterile field. 12:49:43 Sheath upsized to a 6 Fr Short. 12:50:03 6 Fr AR 2 guide catheter was inserted over the wire 12:50:07 WHISPER wire advanced. 12:50:08 Heparin Bolus 5000 units I.V. was administered by Melvi Puga RN; for anticoagulation; dose verified with dr quach 12:50:10 FFR/IVUS 12:50:10 IVUS catheter advanced over wire. 12:50:13 IVUS pass to RCA lesion performed. 12:50:52 [place] IVUS Catheter opened to sterile field. 12:55:18 IVUS catheter removed over wire. 12:56:37 Inflation Number: 1 A Derrick OTW 2.25 x 18 stent was prepped and advanced across the Aorta Right -> Dist RCA. The stent was deployed at 17 NILAM for 0:11 (min:sec). 12:56:41 Stent catheter was removed intact over wire. 12:56:42 Wire removed. 12:56:42 Guide catheter removed. 12:56:57 Sheath upsized to a 6 Fr Long. 12:57:07 ACC PCI Site: Brad[place] has 76% stenosis. 12:57:09 ACC Pre-intervention ROSEMARY Flow is 3. 12:57:11 ACC Pre-intervention ROSEMARY Flow is 3. 12:57:14 ACC Post-intervention ROSEMARY Flow is 3. 12:57:27 A Diagnostic 5Fr IMT Catheter was advanced over the wire and used for . 12:57:28 5 Fr IMT guide catheter was inserted over the wire 12:57:29 GLIDE wire advanced. 12:57:31 Guide catheter removed. 13:00:03 Procedure type changed to Cath procedure, Diagnostic procedure, LHC, LHC w/Coronaries w/Grafts, FFR/IVUS, Intra-Coronary IVUS Initial, PCI procedure, SVG-BMS/KARINA Initial, Miscellaneous Procedures, Moderate Sedation up to 30 minutes, Peripheral Cath Diagnostic Procedure, Cath Peripheral, Timjn-Hhyxezr-Qjt-Off, Peripheral vascular Intervention, Stent, Stent-Fem/Popw/plasty 13:00:42 Inflation number: 1 A Cordis Powerflex Pro 6.0 X 20 X 135 balloon was prepped and advanced across the Mid Superficial Femoral, Left, then inflated to 9 NILAM for 0:07 (min:sec). 13:00:53 Inflation number: 2 The Cordis Powerflex Pro 6.0 X 20 X 135 balloon was reinflated across the Mid Superficial Femoral, Left, to 9 NILAM for 0:10 (min:sec). 13:01:04 Inflation number: 3 The Cordis Powerflex Pro 6.0 X 20 X 135 balloon was reinflated across the Mid Superficial Femoral, Left, to 12 NILAM for 0:09 (min:sec). 13:01:10 Balloon removed over the wire. 13:03:40 Cordis SMART 7 X 20 X 120 stent was deployed across Mid Superficial Femoral, Left . 13:03:43 Stent catheter was removed intact over wire. 13:03:56 Inflation number: 4 The Cordis Powerflex Pro 6.0 X 20 X 135 balloon was reinflated across the Mid Superficial Femoral, Left, to 13 NILAM for 0:08 (min:sec). 13:04:05 Inflation number: 5 The Cordis Powerflex Pro 6.0 X 20 X 135 balloon was reinflated across the Mid Superficial Femoral, Left, to 13 NILAM for 0:08 (min:sec). 13:04:07 Balloon removed over the wire. 13:04:07 Wire removed. 13:04:19 Cordis 6Fr Exoseal opened to sterile field. 13:04:25 Contrast amount:Isovue 300 164ml. 13:06:32 Sheath removed intact; hemostasis achieved with Exoseal to the Right Femoral artery. 13:06:34 Procedure ended.(Physican Out) 13:08:30 Fluoroscopy time 09.30 minutes. 13:08:35 Fluoroscopy dose: 829 mGy 13:08:35 Flurop Dose total: 829 13:08:37 Sharps counted by scrub and verified by R.N. 13:08:38 Insertion/operative site no bleeding no hematoma. 13:08:41 Post-op/insertion site Right Femoral artery dressed using a 4 x 4 and Tegaderm. 13:08:44 Post right femoral artery:stable 13:08:46 Post Procedure Pulses reassessed and unchanged 13:08:48 Post procedure: right dorsailis pedis pulse 1+ Palpable, but thready & weak; easily obliterated. 13:08:51 Post procedure rhythm: sinus rhythm 13:08:53 Post procedure instruction explained to patient.Patient verbalizes understanding. 13:09:02 St Carlos Femstop Arch Gold opened to sterile field. 13:09:05 Procedure and supply charges have been captured, reviewed, submitted and are correct. 13:12:52 Femstop placed over the right femoral artery at 174 mmHg. Hemostasis achieved. 13:15:38 Procedure Complication : No complications 13:15:40 Vital chart was stopped 13:15:40 See physician's report for complete and final results. 13:15:43 Report given to PCU. 13:15:46 Patient transfered to PCU with Bed. 13:15:48 Procedure ended. 13:15:48 Full Disclosure recording stopped 13:15:52 End room use (Document Last) Intervention Summary Intervention Notes Time ActionType Lesion and Equipment Action# Pressure Duration Attributes Used 12:56:37 Place stent Aorta Right Derrick OTW 1 17 00:11 -> Dist RCA 2.25 x 18 stent 13:00:42 Inflate Mid Cordis 1 9 00:07 balloon Superficial Powerflex Femoral, Pro 6.0 X Left 20 X 135 balloon 13:00:53 Reinflate Mid Cordis 2 9 00:10 balloon Superficial Powerflex Femoral, Pro 6.0 X Left 20 X 135 balloon 13:01:04 Reinflate Mid Cordis 3 12 00:09 balloon Superficial Powerflex Femoral, Pro 6.0 X Left 20 X 135 balloon 13:03:40 Deploy self Mid Cordis 1 expanding Superficial SMART 7 X stent Femoral, 20 X 120 Left stent 13:03:56 Reinflate Mid Cordis 4 13 00:08 balloon Superficial Powerflex Femoral, Pro 6.0 X Left 20 X 135 balloon 13:04:05 Reinflate Mid Cordis 5 13 00:08 balloon Superficial Powerflex Femoral, Pro 6.0 X Left 20 X 135 balloon Device Usage Item Name Manufacture Quantity Catalog Number Hospital Part Current Minim al Lot# / Charge Number Stock Stock Serial# Code Acist Acist 1 22686 129493 716195 534930 20 Syringe Medical Systems Inc Bag Microtek 1 2002S 772110 15734 197772 5 Decanter Medical Inc. Medline Cardinal 1 [id number] 075378 16555 463316 5 Cath Pack Health Terumo 5Fr Terumo 1 [id number] 128551 622410 767786 [address] [place] [address] Carlos 1 391298 805071 476910 538010 30 260cm J .035 wire Acist Hand Acist 1 58286 036729 406195 288004 5 ShareMeme Medical Systems Inc Acist Acist 1 68133 640965 863837 114953 5 CO-Value Medical Systems Inc Diagnostic Cardinal 1 [id number] 415584 53943 878902 30 Infinity Health 5Fr Multipack catheter Tegaderm 4 3M 1 1626W 585743 503018 926553 5 x 4 Cordis 5Fr Cardinal 1 109191 5 Pigtail Health Catheter (MP) Cordis 5Fr Cardinal 1 778180 5 JL 4.0 Health Catheter (MP) Cordis 5Fr Cardinal 1 451469 5 3DRC Health Catheter (MP) Diagnostic Cardinal 1 [id number] 080549 405642 621391 20 Infinity Health 5Fr AR 2 MOD catheter Terumo 6Fr Terumo 1 OED560 947785 790711 583903 40 [place] Sheath Terumo 6Fr Terumo 1 RSR01 658721 38296 943398 5 [place] Destination Sheath Merit Merit 1 [id number] 417813 266830 927719 15 BasInterhyp Medical Inflation Kit Smiley Smiley 1 [id number] 624155 092099 469461 5 Whisper J Vascular 300cm 0.014 guide wire Terumo Terumo 1 [id number] 626430 281373 230784 5 Super Stiff Angled 260cm glide wire Medtronic Medtronic 1 [id number] 291755 67282 448386 1 Launcher 6Fr AR 2.0 guide catheter [place] 1 [id number] 461036 271384 056821 8 [place] IVUS Catheter Derrick OTW Medtronic 1 [id number] 477764 81755 986215 5 [id number] 2.25 x 18 stent Cordis Cardinal 1 [id number] 981016 926794 626967 5 Powerflex Health Pro 6.0 X 20 X 135 balloon Diagnostic [place] 1 [id number] 142014 704194 25924 5 5Fr IMT Scientific Catheter Cordis Cardinal 1 [id number] 264721 536033 0 SMART 7 X Health 20 X 120 stent Cordis 6Fr Cardinal 1 EX600 112816 305629 402838 10 [place] [facility] St Carlos 1 [id number] 112759 505034 131443 5 Femstop Arch Gold Signature Audit [place] Stage Time Signature Unsigned Intra-Procedure 09/29/2016 Jovan Gutierrez 1:16:32 PM RT(R) Signatures Monitor : Jovan Gutierrez RT Signature : Date : Time : [place] [id number] [place], [place] [address]
--- NOTE | ~2016-09-28 | OP ---
PATIENT NAME: TONY OCAMPO MEDICAL RECORD: [id number] :34 LOCATION:D.M2 D.0 ADMISSION DATE:09/28/16 SURGEON: DAVINA MOONEY MD OPERATION DATE: 09/29/16 PROCEDURES: 1. Percutaneous transluminal coronary angioplasty stent right coronary artery through vein graft. 2. Left heart catheterization. 3. Selective coronary angiography. 4. Left ventriculogram. 5. Vein graft angiography. 6. Intravascular ultrasound right coronary artery. INDICATION: 1. Angina. 2. Coronary artery disease. PROCEDURE IN DETAIL: After informed consent was obtained and after detailed explanation of risks, benefits, as well as alternative therapies, the patient elected to proceed with angiogram and angioplasty. The right femoral area was prepped and draped in a normal sterile fashion. The right femoral artery was cannulated via modified Seldinger technique with placement of 6-[place] sheath. All catheters exchanged through this sheath. FINDINGS: Left ventriculogram was performed in standard 30 degree HOUGH view, reveals good cardiac wall motion throughout all segments. Overall ejection fraction 55%. SELECTIVE CORONARY ANGIOGRAPHY: 1. Left main is with no significant angiographic disease. 2. Left anterior descending has a total occlusion of mid vessel. There is a relatively large left anterior descending diagonal that has previously placed stent with 70-80% in-stent restenosis. 3. Left circumflex is totally occluded. 4. Vein graft to the circumflex is closed. Vein graft to the distal left anterior descending is widely patent, and the distal left anterior descending is widely patent. 5. The right coronary artery is closed. 6. Vein graft to the right coronary artery is widely patent. There are previously placed stents. There is no significant restenosis. However, after this there is greater than 80% stenosis confirmed by intravascular ultrasound. PTCA STENT OF THE RIGHT CORONARY ARTERY: The stent used is a 2.25 X 18 millimeter Resolute Sobieski. The result was 0% residual stenosis. DAVINA MOONEY MD CC: [id number] DICTATION DATE: 09/29/16 1500 OFFICE COORDINATOR RECEPTIONIST: ELDON 09/30/[address] [facility] [address] [id number]
--- NOTE | ~2016-09-28 | DS ---
PATIENT:TONY OCAMPO :33 MEDICAL RECORD: [id number] DISCHARGE SUMMARY ADMISSION DATE: 10/01/16 DISCHARGE DATE: 10/01/16 DISCHARGE SUMMARY PROBLEM LIST: 1. Angina, unstable. 2. Coronary artery disease. 3. Percutaneous transluminal coronary angioplasty stent left anterior descending and right coronary artery this admission. 4. Claudication. 5. Peripheral vascular disease. 6. Percutaneous transluminal angioplasty stent right and left superficial femoral artery this admission. 7. Hypertension. 8. Hyperlipidemia. HOSPITAL COURSE: The patient presents with unstable angina and claudication symptomatology. He was found to have significant disease of the left anterior descending, right coronary artery, and both legs. He underwent successful percutaneous transluminal angioplasty stent of all territories. He had an uneventful postop course. PLAN: He was discharged home to continue aspirin and Plavix. He will follow up with [facility] in one month. DAVINA MOONEY MD CC: [id number] DICTATION DATE: 09/30/16 1500 TERMINAL OPERATOR: DM 10/01/16 0906 DIS IN 10/01/16 [facility] [address] [id number]
--- NOTE | ~2016-09-28 | OP ---
PATIENT NAME: TONY OCAMPO MEDICAL RECORD: [id number] :34 LOCATION:D.M2 D.2120 ADMISSION DATE:09/28/16 SURGEON: DAVINA MOONEY MD OPERATION DATE: 09/29/16 PROCEDURES: 1. Stent placement superficial femoral artery left. 2. Percutaneous transluminal angioplasty superficial femoral artery left. 3. Aortofemoral runoff. 4. Abdominal aortography. INDICATION: 1. Claudication. 2. Peripheral vascular disease. PROCEDURE IN DETAIL: After informed consent was obtained and after detailed explanation of risks, benefits, as well as alternative therapies, the patient elected to proceed with angiogram and angioplasty. The right femoral area was prepped and draped in a normal sterile fashion. The right femoral artery was cannulated via modified Seldinger technique with placement of 6-Ukrainian sheath. All catheters exchanged through this sheath. FINDINGS: Abdominal aortography was performed. The catheter was pulled down for aortofemoral runoff. Abdominal aortography reveals no significant abdominal aortic disease. No dissection or aneurysm formation. RIGHT LEG: A. Iliacs: The common, internal, and external iliacs are tortuous and calcified but no significant stenosis. B. Femoral system: Common and deep femoral are widely patent. Superficial femoral artery has previously placed stents. These are widely patent. C. Popliteal/infrapopliteal vessels: The popliteal has previously placed stents. There is at least 80% in-stent restenosis of this stent. After that there is good two vessel runoff to the foot. LEFT LEG: A. Iliacs: The common, internal, and external iliacs show mild irregularities but no flow-limiting stenosis. B. Femoral system: Common and deep femoral are widely patent. Superficial femoral artery has previously placed stent. The stent is actually widely patent, however, there is 80+% stenosis after the previously placed stent in the mid distal superficial femoral artery. C. Popliteal/infrapopliteal vessels are patent. There is good two vessel runoff to the foot. FARM MACHINERY SET UP MECHANIC STENT OF THE LEFT SUPERFICIAL FEMORAL ARTERY: The balloon used was a 6.0 balloon. This yielded a suboptimal result with severe intimal dissection. Stenting was undertaken with a 7 x 20 SMART stent. Result was 0% residual stenosis. OVERALL IMPRESSION: Successful percutaneous transluminal angioplasty stent of the left superficial femoral artery going from 80% initial stenosis to 0% residual stenosis. OPERATIVE REPORT [id number] TONY OCAMPO JEFFREY MD CC: [id number] DICTATION DATE: 09/29/16 1500 GAS USAGE METER CLERK: ELDON 09/30/[address] [facility] [address] [id number]
--- NOTE | ~2016-09-28 | HEMODYNAMI ---
PATIENT:TONY OCAMPO MEDICAL RECORD: [id number] : 34 LOCATION:[facility] D.2120 ADMISSION DATE: 09/28/16 Generatedon:09/30/201610:34 Patient name: TONY OCAMPO Patient #: [id number] SSN: [id number] : 1935 Date of study: 09/30/2016 Page: Of Hemodynamic Procedure Report Patient Data Patient Demographics Procedure consent was obtained First Name: TONY Gender: Male Last Name: TERRENCE : 1935 [facility] Initial: GENE Age: 81 year(s) Patient #: [id number] Race: SSN: [id number] Additional ID: [id number] Contact details Address: [address] [place] [address] [facility] State: [place] City: [facility] [place] Zip code: [address] Past Medical History History of disease Date Diagnosis Comments Peripheral vascular disease Allergies Allergen Reaction Date Comments Reported Penicillins 06/01/2015 Sulfa drugs 06/01/2015 Codeine 06/01/2015 Codeine 12/24/2015 Penicillins 12/24/2015 Sulfa drugs 12/24/2015 Other allergy 04/18/2016 PCN, codeine, Sulfa Penicillins 04/28/2016 Sulfa drugs 04/28/2016 Codeine 04/28/2016 Penicillins 09/29/2016 Sulfa drugs 09/29/2016 Codeine 09/29/2016 Other allergy 09/30/2016 PCN, SULFA, CODEINE. Admission Admission Data Admission Date: 09/28/2016 Admission Time: 16:25 Room #: D.2120 Lab Results Lab Result Date: 09/29/2016 Lab Result Time: 0:00 Biochemistry Name Units Result Min Max BUN mg/dl 38 --(----)-* 7 18 Creatinine mg/dl 2 --(----)-* 0.6 1.3 CBC Name Units Result Min Max Hemoglobin g/dl 11.9 *-(----)-- 13.5 17.5 Procedure Procedure Types Cath Procedure PCI Procedure Coronary Stent Initial Peripheral vascular Intervention Stent Stent-Fem/Popw/plasty Procedure Description Procedure Date Procedure Date: 09/30/2016 Procedure Start Time: 8:58 Procedure End Time: 10:33 Procedure Staff Name Function Rao Quach MD Performing Physician Ana M Bender RT Scrub Alvin Montgomery RN Nurse Casper Cabrera RT Monitor Procedure Data Cath Procedure Fluoroscopy Diagnostic fluoroscopy Total fluoroscopy Time: time: 22.8 min 22.8 min Diagnostic fluoroscopy Total fluoroscopy dose: 609 dose: 609 mGy mGy Contrast Material Contrast Material Type Amount (ml) Isovue 300 279 Entry Location Entry Primary Successful Side Size Upsize 1 Upsize Entry Closure [place] ccessful Closure Location (Fr) (Fr) 2 (Fr) Remarks Device Remarks Femoral Left 6 Fr 6 Fr 6 Fr Exoseal artery Short Mid-Length Short Popliteal Right 6 Fr Exoseal Short Estimated blood loss: 10 ml Procedure Complications No complications Procedure Medications Medication Administration Route Dosage Oxygen NC 2 l/min Heparin Flush Bag added to field 2 bags (1000units/500ml NS) 0.9% NaCl I.V. 100 ml/hr Fentanyl I.V. 50 mcg Versed I.V. 1 mg Heparin Bolus I.V. 4000 units Fentanyl I.V. 50 mcg Versed I.V. 1 mg Heparin Bolus I.V. 3000 units Fentanyl I.V. 50 mcg Heparin Bolus I.V. 3000 units Heparin Bolus I.V. 5000 units Fentanyl I.V. 50 mcg Fentanyl I.V. 50 mcg Hemodynamics Rest HGB: 11.9 (g/dl) Heart Rate: 62 (bpm) Snapshots Pre Cath Intra NCS Post Cath Vital Signs Time Heart Resp SPO2 NIBP (mmHg) Rhythm Pain Sedation Rate (ipm) (%) Status Level (bpm) 8:29:00 64 20 97 158/68(117) NSR 0 (11) 10(A) , No pain 8:33:22 64 17 97 159/71(109) NSR 0 (11) 10(A) , No pain 8:37:42 61 20 100 162/72(124) NSR 0 (11) 10(A) , No pain 8:42:04 61 18 100 154/73(122) NSR 0 (11) 10(A) , No pain 8:46:25 61 17 100 140/67(112) NSR 0 (11) 10(A) , No pain 8:50:40 63 20 89 135/65(97) NSR 0 (11) 10(A) , No pain 8:54:56 62 18 99 106/56(85) NSR 0 (11) 9(A) , No pain 8:59:00 62 17 100 105/60(89) NSR 0 (11) 9(A) , No pain 9:03:04 64 19 100 119/58(91) NSR 0 (11) 9(A) , No pain 9:07:14 64 16 100 116/60(89) NSR 0 (11) 9(A) , No pain 9:11:22 65 18 100 115/65(100) NSR 0 (11) 9(A) , No pain 9:15:29 65 17 100 125/61(104) NSR 0 (11) 9(A) , No pain 9:19:41 65 18 100 127/60(99) NSR 0 (11) 9(A) , No pain 9:23:51 67 17 100 115/68(95) NSR 0 (11) 9(A) , No pain 9:32:21 70 17 100 155/78(111) NSR 0 (11) 9(A) , No pain 9:36:39 68 18 100 145/77(126) NSR 0 (11) 9(A) , No pain 9:40:55 68 17 100 146/71(112) NSR 0 (11) 9(A) , No pain 9:45:11 69 18 100 141/73(108) NSR 0 (11) 9(A) , No pain 9:49:23 69 17 100 157/81(113) NSR 0 (11) 9(A) , No pain 9:53:43 69 17 100 145/72(108) NSR 0 (11) 9(A) , No pain 9:58:28 69 17 100 148/66(85) NSR 0 (11) 9(A) , No pain 10:09:07 70 17 98 121/69(90) NSR 0 (11) 9(A) , No pain 10:13:19 70 18 99 98/52(80) NSR 0 (11) 9(A) , No pain 10:17:25 69 17 100 94/52(73) NSR 0 (11) 9(A) , No pain 10:21:28 70 17 100 88/52(70) NSR 0 (11) 9(A) , No pain 10:25:28 70 4 100 93/58(84) NSR 0 (11) 9(A) , No pain 10:29:28 No Cuff NSR 0 (11) 9(A) , No pain 10:33:28 No Cuff NSR 0 (11) 9(A) , No pain Medications Time Medication Route Dose Verified Delivered Reason Notes Effectiveness by by 8:46:22 Oxygen NC 2 Alvin Alvin Per physician l/min Ulises Montgomery RN RN 8:46:31 Heparin Flush added 2 Alvin Alvin used for Bag to bags Ulises Montgomery student union consultant (1000units/500ml field RN NS) 8:46:41 0.9% NaCl I.V. 100 Alvin Alvin Per physician ml/hr Ulises Montgomery RN RN 8:52:42 Fentanyl I.V. 50 Alvin Alvin for sedation mcg Ulises Montgomery RN RN 8:52:49 Versed I.V. 1 mg Alvin Alvin for sedation Ulises Montgomery RN RN 9:01:49 Heparin Bolus I.V. 4000 Rao Alvin for units Main Montgomery RN anticoagulation 9:01:59 Fentanyl I.V. 50 Rao Alvin for sedation mcg Main Montgomery RN 9:02:03 Versed I.V. 1 mg Rao Alvin for sedation Main Montgomery RN 9:17:11 Heparin Bolus I.V. 3000 Rao Alvin for units Main Montgomery RN anticoagulation 9:19:49 Fentanyl I.V. 50 Rao Alvin for sedation mcg Main Montgomery RN 9:21:47 Heparin Bolus I.V. 3000 Rao Alvin for units Main Montgomery RN anticoagulation 9:49:54 Heparin Bolus I.V. 5000 Rao Alvin for units Main Montgomery RN anticoagulation 9:50:00 Fentanyl I.V. 50 Rao Alvin for sedation mcg Main Montgomery RN 9:59:16 Fentanyl I.V. 50 Rao Alvin for sedation mcg Main Navasell junior buyer Log Time Note 8:07:20 Alvin Montgomery RN sent for patient. Start room use. 8:07:21 Time tracking: Regular hours 8:07:25 Plan of Care:Hemodynamics will remain stable., Cardiac rhythm will remain stable., Comfort level will be maintained., Respiratory function will remain adequate., Patient/ family verbilizes understanding of procedure., Procedure tolerated without complication., Recovers from procedure without complications.. 8:22:38 Patient received from PCU to CCL 2 Alert and oriented. Tansferred to table in Supine position. 8:22:39 Warm blankets applied, and perla hugger turned on for patient comfort. 8:22:40 Correct patient and procedure confirmed by team. 8:22:41 Signed procedure consent form obtained from patient. 8:22:41 ECG and BP/O2 sat monitors applied to patient. 8:22:42 Full Disclosure recording started 8:27:43 Vital chart was started 8:36:58 Baseline sample Acquired. 8:37:11 Rhythm: sinus rhythm 8:37:37 H&P Date Dictated: 09/28/2016 Within 30 days and on chart.. 8:37:38 Pre-procedure instructions explained to patient. 8:37:38 Pre-op teaching completed and patient verbalized understanding. 8:37:39 Family in patients room. 8:37:41 Patient NPO since Midnight. 8:38:08 Patient allergic to Other allergyPCN, SULFA, CODEINE. 8:38:14 Is the patient allergic to Iodine/contrast media? No. 8:38:22 Is patient on blood thinner?Yes 8:38:24 ACC The patient was administered the following blood thiners within the last 24 hours: ACCPlavix 8:38:26 Patient diabetic? Yes. 8:39:09 If diabetic: On Metformin? No 8:39:13 Previous problem with sedation/anesthesia? No ? 8:39:15 Snore? Yes 8:39:16 Sleep apnea? Yes 8:39:18 Deviated septum? No 8:39:18 Opens mouth fully? Yes 8:39:19 Sticks out tongue? Yes 8:39:22 Airway obstruction? No ? 8:39:29 Dentures? Yes IN TIGHT 8:39:37 Pre procedure: right dorsailis pedis pulse Doppler 8:39:45 Pre procedure: left dorsailis pedis pulse Doppler 8:39:54 IV right hand D/C'd due to infiltration. 8:40:09 22g IV Catheter opened to sterile field. 8:40:09 High Pressure Extension Tubing (White) opened to sterile field. 8:43:26 IV started by Alvin Montgomery RN inleft hand with a 22 gauge IV catheter with 0.9% NaCl at KVO. 8:43:30 Lab results completed and on chart. 8:43:33 Bilateral groins area was prepped with chlora-prep and draped in sterile fashion 8:43:34 Alarms reviewed by R. N. 8:43:34 Sharps counted by scrub and verified by R.N. 8:43:38 Use device set Femoral PCI 8:43:40 Tegaderm 4 x 4 opened to sterile field. 8:43:42 Acist Manifold opened to sterile field. 8:43:43 Acist Syringe opened to sterile field. 8:43:44 Acist Hand Control opened to sterile field. 8:43:44 Bag Decanter opened to sterile field. 8:43:45 Medline Cath Pack opened to sterile field. 8:43:45 Terumo 6Fr Orma Sheath opened to sterile field. 8:43:45 St Carlos 260cm J .035 wire opened to sterile field. 8:43:46 Merit BasixCompak Inflation Kit opened to sterile field. 8:44:01 Smiley Whisper J 300cm 0.014 guide wire opened to sterile field. 8:46:22 Oxygen 2 l/min NC was administered by Alvin Montgomery RN; Per physician; 8:46:31 Heparin Flush Bag (1000units/500ml NS) 2 bags added to field was administered by Alvin Montgomery RN; used for procedure; 8:46:41 0.9% NaCl 100 ml/hr I.V. was administered by Alvin Montgomery RN; Per physician; 8:50:18 Zero performed for pressure channel P1 8:52:25 Physician arrived 8:52:25 --------ALL STOP TIME OUT------ 8:52:27 Final Timeout: patient, procedure, and site verified with staff and physician. All members of the team are in agreement. 8:52:29 Bilateral groins site verified by team. 8:52:31 Physical assessment completed. ASA score P 2 - A patient with mild systemic disease as per Rao Quach MD. 8:52:35 Sedation plan: IV Moderate Sedation Versed, Fentanyl 8:52:42 Fentanyl 50 mcg I.V. was administered by Alvin Montgomery RN; for sedation; 8:52:49 Versed 1 mg I.V. was administered by Alvin Montgomery RN; for sedation; 8:57:54 Procedure started. 8:58:03 Local anesthetic to left femerol artery with Lidocaine 2% by Rao Quach MD.INITIAL ACCESS ONLY 8:59:34 A 6 Fr Short sheath was inserted into the Left Femoral artery 8:59:51 Cordis 6FR XBLAD 3.5 guide catheter opened to sterile field. 9:01:19 6 Fr XBLAD 3.5 guide catheter was inserted over the wire 9:01:33 WHISPER wire advanced. 9:01:49 Heparin Bolus 4000 units I.V. was administered by Alvin Montgomery RN; for anticoagulation; 9:01:59 Fentanyl 50 mcg I.V. was administered by Alvin Montgomery RN; for sedation; 9:02:03 Versed 1 mg I.V. was administered by Alvin Montgomery RN; for sedation; 9:03:23 Wire advanced across lesion. 9:04:18 Inflation Number: 1 A Derrick OTW 2.5 x 08 stent was prepped and advanced across the Mid LAD. The stent was deployed at 23 NILAM for 0:10 (min:sec). 9:05:09 Stent catheter was removed intact over wire. 9:05:10 Wire removed. 9:05:10 Guide catheter removed. 9:06:08 Terumo 6Fr Orma Destination Sheath opened to sterile field. 9:06:29 Terumo ADVANTAGE 260CM glide wire opened to sterile field. 9:06:34 GLIDE wire advanced. 9:06:56 GLIDE WIRE ADVANCED AROUND HORN 9:07:00 Sheath upsized to a 6 Fr Mid-Length. 9:12:19 Terumo 5FR STRAIGHT 100CM glide catheter opened to sterile field. 9:12:28 5 Fr GLIDE CATH guide catheter was inserted over the wire 9:13:03 Catheter removed. unable to get back-up support 9:13:10 [place] Sci Choice PT Extra Support J 300cm .014 gu opened to sterile field. 9:13:48 Terumo 5FR ANGLED 100CM glide catheter opened to sterile field. 9:14:45 5 Fr GLIDE CATH ANGLED guide catheter was inserted over the wire 9:14:50 GLIDE WIRE REMOVED. 9:15:22 CHOICE PT EXTRA SUPPORT wire advanced. 9:17:11 Heparin Bolus 3000 units I.V. was administered by Alvin Montgomery RN; for anticoagulation; 9:19:49 Fentanyl 50 mcg I.V. was administered by Alvin Montgomery RN; for sedation; 9:21:47 Heparin Bolus 3000 units I.V. was administered by Alvin Montgomery RN; for anticoagulation; 9:31:09 Vital chart was stopped 9:31:10 Vital chart was started 9:32:33 Wire removed. 9:32:37 Catheter removed. 9:33:43 UNABLE TO CROSS LESION FROM LT. GROIN ACCESS. FLIPPING PT AND PREPPING RT. POPLITEAL. 9:34:25 Tegaderm 4 x 4 opened to sterile field. 9:34:26 Tegaderm 4 x 4 opened to sterile field. 9:34:31 High Pressure Extension Tubing (White) opened to sterile field. 9:34:45 St Carlos 260cm J .035 wire opened to sterile field. 9:35:01 Local anesthetic to right popliteal artery with Lidocaine 2% by Rao Quach MD.ADDITIONAL ACCESS 9:36:09 A 6 Fr Short sheath was inserted into the Right Popliteal 9:38:12 Terumo ADVANTAGE 260CM glide wire opened to sterile field. 9:38:41 5 Fr STRAIGHT GLIDE guide catheter was inserted over the wire 9:45:[address] NAYLOR FOR POSSIBLE SURGERY. 9:47:33 PT EXTRA SUPPORT wire advanced. 9:47:35 Wire advanced across lesion. 9:47:40 GLIDE CATHETER ADVANCED 9:48:48 Wire removed. 9:48:51 GLIDE WIRE wire advanced. 9:48:59 Wire advanced across lesion. 9:49:00 GLIDE CATHETER REMOVED 9:49:54 Heparin Bolus 5000 units I.V. was administered by Alvin Montgomery RN; for anticoagulation; 9:50:00 Fentanyl 50 mcg I.V. was administered by Alvin Montgomery RN; for sedation; 9:52:59 Cordis SMART 6 X 150 X 120 stent was deployed across Mid Popliteal, Right . 9:53:00 Stent catheter was removed intact over wire. 9:53:44 Inflation number: 1 A Cordis Powerflex Pro 6.0 x 40 x 135cm balloon was prepped and advanced across the Mid Popliteal, Right, then inflated to 8 NILAM for 0:10 (min:sec). 9:53:50 Inflation number: 2 The Cordis Powerflex Pro 6.0 x 40 x 135cm balloon was reinflated across the Mid Popliteal, Right, to 5 NILAM for 0:00 (min:sec). 9:55:13 Balloon removed over the wire. 9:55:25 Wire removed. 9:56:48 Sheath removed intact; hemostasis achieved with Exoseal to the Right Popliteal. 9:59:16 Fentanyl 50 mcg I.V. was administered by Alvin Montgomery RN; for sedation; 10:07:26 PT FLIPPED TO THE SUPINE POSITION TO ACHIEVE HEMOSTASIS OF THE LEFT FEMORAL. 10:07:41 St Carlos 260cm J .035 wire opened to sterile field. 10:07:42 Terumo 6Fr Orma Sheath opened to sterile field. 10:07:57 Vital chart was stopped 10:07:58 Vital chart was started 10:08:04 Sheath upsized to a 6 Fr Short. 10:08:04 Sheath removed intact; hemostasis achieved with Exoseal to the Left Femoral artery. 10:08:16 Procedure ended.(Physican Out) 10:15:18 Fluoroscopy time 22.80 minutes. 10:15:22 Flurop Dose total: 609 10:15:22 Fluoroscopy dose: 609 mGy 10:15:43 Contrast amount:Isovue 300 279ml. 10:15:45 Sharps counted by scrub and verified by R.N. 10:15:47 Insertion/operative site no bleeding no hematoma. 10:15:51 Post-op/insertion site Left Femoral artery dressed using a 4 x 4 and Tegaderm. 10:15:55 Post-op/insertion site Right Popliteal dressed using a 4 x 4 and Tegaderm. 10:15:58 Post left femerol artery:stable, soft, clean and dry 10:16:07 Post right popliteal artery:stable, soft, clean and dry 10:16:09 Post Procedure Pulses reassessed and unchanged 10:16:11 Post-procedure physical assessment completed. ASA score P 2 - A patient with mild systemic disease as per Rao Quach MD. 10:16:14 Post procedure rhythm: unchanged. 10:16:16 Estimated blood loss: 10 ml 10:16:17 Post procedure instruction explained to patient.Patient verbalizes understanding. 10:16:17 Patient needs reinforcement of post procedure teaching. 10:17:24 Procedure type changed to Cath procedure, PCI procedure, Coronary Stent Initial, Peripheral vascular Intervention, Stent, Stent-Fem/Popw/plasty 10:17:30 St Carlos Femstop Arch Gold opened to sterile field. 10:25:03 Terumo TORQUE DEVICE PLASTIC .038 opened to sterile field. 10:33:20 Procedure and supply charges have been captured, reviewed, submitted and are correct. 10:33:25 Procedure Complication : No complications 10:33:31 Report given to PCU. 10:33:33 Patient transfered to PCU with Stretcher. 10:33:35 Procedure ended. 10:33:35 Full Disclosure recording stopped 10:33:45 Femstop placed over the left femerol artery at 125 mmHg. Hemostasis achieved. 10:33:49 End room use (Document Last) 10:34:55 Vital chart was stopped Intervention Summary Intervention Notes Time ActionType Lesion and Equipment Action# Pressure Duration Attributes Used 9:04:18 Place stent Mid LAD Derrick OTW 1 23 00:10 2.5 x 08 stent 9:52:59 Deploy self Mid Cordis 1 expanding Popliteal, SMART 6 X stent Right 150 X 120 stent 9:53:44 Inflate Mid Cordis 1 8 00:10 balloon Popliteal, Powerflex Right Pro 6.0 x 40 x 135cm balloon 9:53:50 Reinflate Mid Cordis 2 5 00:00 balloon Popliteal, Powerflex Right Pro 6.0 x 40 x 135cm balloon Device Usage Item Name Manufacture Quantity Catalog Number Hospital Part Current Minim al Lot# / Charge Number Stock Stock Serial# Code 22g IV B. De La Fuente 1 [id number] 5 Catheter High Merit 2 [id number] 015800 84505 893237 10 Pressure Medical Extension Tubing (White) Tegaderm 4 3M 3 [id number] 112026 020854 643331 5 x 4 Acist Acist 1 34479 510888 093777 413502 5 Manifold Medical Systems Inc Acist Acist 1 12036 064578 033584 247472 20 Syringe Medical Systems Inc Acist Hand Acist 1 73779 606612 072023 203601 5 Control Medical Systems Inc Bag Microtek 1 2002S 050358 10854 356043 5 DecBuddha Software Medical Inc. Medline Cardinal 1 [id number] 471367 56345 742345 5 Cath Pack Health Terumo 6Fr Terumo 2 [id number] 011522 359032 850135 [address] St Carlos 3 223294 705068 850366 294789 30 260cm J .035 wire Merit Merit 1 DM5263 831561 652959 693017 15 Kinamik Data Integrity Medical Inflation Kit Smiley Smiley 1 [id number] 806238 590160 656802 5 Whisper J Vascular 300cm 0.014 guide wire Cordis 6FR Cardinal 1 [id number] 750614 855305 508389 10 XBLAD 3.5 Health guide catheter [place] OTW Medtronic 1 [id number] 754824 01798 820494 5 [id number] 2.5 x 08 stent Terumo 6Fr Terumo 1 [id number] 318964 81786 079031 5 Orma Destination Sheath Terumo Terumo 2 [id number] 154900 040371 5 ADVANTAGE 260CM glide wire Terumo 5FR Terumo 1 CG506 511817 60769 848060 4 STRAIGHT 100CM glide catheter [place] Sci [place] 1 [id number] 020549 20180914 830130 5 Choice PT Scientific Extra Support J 300cm .014 gu Terumo 5FR Terumo 1 CG508 831444 58492 299491 4 ANGLED 100CM glide catheter Cordis Cardinal 1 [id number] 629565 119690 0 SMART 6 X Health 150 X 120 stent Cordis Cardinal 1 [id number] 184397 582902 478622 5 Powerflex Health Pro 6.0 x [address] [facility] St Carlos 1 [id number] 200766 772716 837139 5 Femstop Arch Gold Terumo [place] 1 TD01 525136 765124 129256 5 TORQUE Scientific DEVICE PLASTIC .038 Signature Audit [place] Stage Time Signature Unsigned Intra-Procedure 09/30/2016 Casper Cabrera 10:34:43 AM RT(R) Signatures Monitor : Casper Cabrera RT Signature : Date : Time : [address] [place] [address]
--- NOTE | ~2016-09-28 | OP ---
PATIENT NAME: TONY OCAMPO MEDICAL RECORD: [id number] :34 [facility].CV[facility] ADMISSION DATE:10/01/16 SURGEON: DAVINA MOONEY MD OPERATION DATE: 10/01/16 PROCEDURES: 1. Percutaneous transluminal coronary angioplasty stent left anterior descending. 2. Selective coronary angiography. INDICATION: Unstable angina. PROCEDURE IN DETAIL: After informed consent was obtained and after detailed explanation of risks, benefits, as well as alternative therapies, the patient elected to proceed with angiogram and angioplasty. The right femoral area was prepped and draped in a normal sterile fashion. The right femoral artery was cannulated via modified Seldinger technique with placement of 6-[place]alian sheath. All catheters exchanged through this sheath. FINDINGS: The left anterior descending has a previously placed stent leading into the non-grafted left anterior descending diagonal with 75% in-stent restenosis addressed with 2.5 X 8 millimeter [place] stent taken to 17 atmospheres. The result was 0% residual stenosis. OVERALL IMPRESSION: Successful percutaneous transluminal coronary angioplasty stent of the left anterior descending leading into the non-grafted diagonal going from 75% initial stenosis to 0% residual stenosis. DAVINA MOONEY MD CC: [id number] DICTATION DATE: 09/30/16 1500 SECURITY CLERK: ELDON 10/01/16 0903 ADM IN [facility] [address] [place] [address]
--- NOTE | ~2016-09-28 | OP ---
PATIENT NAME: TONY OCAMPO MEDICAL RECORD: [id number] :33 LOCATION:[id number] ADMISSION DATE:10/01/16 SURGEON: DAVINA MOONEY MD OPERATION DATE: 09/30/16 PROCEDURES: 1. Stent placement superficial femoral artery right. 2. Percutaneous transluminal angioplasty superficial femoral artery right. 3. Unilateral extremity angiography. INDICATION: 1. Claudication. 2. Peripheral vascular disease. PROCEDURE IN DETAIL: After informed consent was obtained and after detailed explanation of risks, benefits, as well as alternative therapies, the patient elected to proceed with angiogram and angioplasty. The right femoral area was prepped and draped in a normal sterile fashion. The right femoral artery was cannulated via modified Seldinger technique with placement of 6-Tajik sheath. All catheters exchanged through this sheath. FINDINGS: The right superficial femoral artery has greater than 70% stenosis in the distal aspect. This was addressed with a 6.0 balloon yielding suboptimal result with severe intimal dissection. Stenting was undertaken with a 6 X 150 millimeter SMART stent. The result was 0% residual stenosis. OVERALL IMPRESSION: Successful percutaneous transluminal angioplasty stent of the right superficial femoral artery going from greater than 70% initial stenosis to 0% residual stenosis. DAVINA MOONEY MD CC: [id number] DICTATION DATE: 09/30/16 1500 GROUP HOME COUNSELOR: ELDON 10/01/16 0901 ADM IN [place] [id number] [place] [id number]
[2016-09-28 14:32] LABS: BASOPHILS 0.7 % (0-2); EOSINOPHILS 6.9 % (0-7); HEMATOCRIT 35.4 % (42.0-54.0); HEMOGLOBIN 11.9 g/dL (13.5-17.5); IMMATURE GRANULOCYTES 0.4 % (0-5); LYMPHOCYTES 12.7 % (15-50); MCH 31.7 pg (26.0-34.0); MCHC 33.6 g/dL (31.0-37.0); MCV 94.4 fL (80.0-100.0); MEAN PLATELET VOLUME 9.4 fL (7.4-10.4); NEUTROPHILS 67.3 % (40-80); RBC 3.75 10x6/uL (4.20-6.10); RDW 13.6 % (11.5-14.5); WBC 7.2 10x3/uL (4.8-10.8)
[2016-09-28 14:34] LABS: PLATELET COUNT 243 10x3/uL (130-400)
[2016-09-28 14:57] LABS: ALBUMIN 3.5 g/dL (3.4-5.0); ANION GAP 14.8 mmol/L (8-16); BILIRUBIN - TOTAL 0.25 mg/dL (0.2-1.3); CARBON DIOXIDE 26.1 mmol/L (21.0-32.0); POTASSIUM - SERUM 4.9 mmol/L (3.5-5.1); PROTEIN - SERUM 6.4 g/dL (6.4-8.2)
[2016-09-28 15:18] LABS: TROPONIN-I 0.078 ng/mL (0.000-0.060)
[2016-09-28 15:21] LABS: APPEARANCE CLEAR (CLEAR); BILIRUBIN NEGATIVE (NEGATIVE); COLOR YELLOW (YELLOW); GLUCOSE NEGATIVE (NEGATIVE); KETONE NEGATIVE (NEGATIVE); LEUKOCYTE ESTERASE NEGATIVE (NEGATIVE); NITRITE NEGATIVE (NEGATIVE); PROTEIN NEGATIVE (NEGATIVE); SPECIFIC GRAVITY 1.015 (1.005-1.020); UROBILINOGEN NORMAL (NORMAL)
[2016-09-28 15:34] LABS: INR 1.04 (0.85-1.17); PROTIME 13.5 SECONDS (11.6-15.0)
--- NOTE | 2016-09-28 17:54 | NUR ---
RECEIVED PT TO ROOM 2120 AAOX4 RESP UNLABORED PT DENIES ANY PAIN OR DISCOMFORT
[2016-09-28] MEDS ORDERED: FLUTICASONE PRO16 GM NASAL (18:28)
[2016-09-28] MEDS ORDERED: PREDNISONE1 MG PO ×2 (18:34→18:35)
[2016-09-28] MEDS ORDERED: PRAVACHOL40 MG PO (18:38)
[2016-09-28] MEDS ORDERED: POTASSIUM CHLO20 MEQ PO (18:45)
[2016-09-28 20:19] LABS: CKMB 1.2 U/L (0.0-3.6); CREATINE KINASE 36 UL (21-232)
[2016-09-28 20:20] LABS: TROPONIN-I 0.084 ng/mL (0.000-0.060)
--- NOTE | 2016-09-28 20:28 | NUR ---
RESUMED CARE OF PT, LYING IN BED RESPIRATIONS EVEN AND UNLABORED ON ROOM AIR. 74 SR WITH BBB ON TELEMETRY. RIGHT HAND SALINE LOCKED. PLAN OF CARE DISCUSSED. CALL LIGHT IN REACH. SEE NURSE ASSESSMENT. WILL CONTINUE TO MONITOR.
[2016-09-28 22:41] VITALS: BP 124/62
[2016-09-29 02:31] LABS: CKMB 1.2 U/L (0.0-3.6); CREATINE KINASE 38 UL (21-232)
[2016-09-29 02:33] LABS: TROPONIN-I 0.104 ng/mL (0.000-0.060)
[2016-09-29 02:51] VITALS: BP 118/47
--- NOTE | 2016-09-29 03:06 | NUR ---
CALL LIGHT IN REACH, WILL CONTINUE WITH PLAN OF CARE. 57 SB ON TELEMETRY
[2016-09-29 05:27] VITALS: BP 122/46
[2016-09-29 08:00] VITALS: BP 122/56
[2016-09-29 09:29] LABS: CKMB 1.4 U/L (0.0-3.6); CREATINE KINASE 37 UL (21-232)
[2016-09-29 09:35] LABS: TROPONIN-I 0.111 ng/mL (0.000-0.060)
--- NOTE | 2016-09-29 09:37 | NUR ---
TELEMETRY SR. AT BS. NPO FOR [facility]. WILL CONT. PLAN OF CARE.
[2016-09-29 10:39] LABS: BASOPHILS 0.9 % (0-2); EOSINOPHILS 7.1 % (0-7); HEMATOCRIT 33.7 % (42.0-54.0); HEMOGLOBIN 11.2 g/dL (13.5-17.5); IMMATURE GRANULOCYTES 0.4 % (0-5); LYMPHOCYTES 13.5 % (15-50); MCH 31.4 pg (26.0-34.0); MCHC 33.2 g/dL (31.0-37.0); MCV 94.4 fL (80.0-100.0); MEAN PLATELET VOLUME 9.9 fL (7.4-10.4); MONOCYTES 11.1 % (2-11); PLATELET COUNT 256 10x3/uL (130-400); RBC 3.57 10x6/uL (4.20-6.10); RDW 13.6 % (11.5-14.5); WBC 7.9 10x3/uL (4.8-10.8)
[2016-09-29 10:40] LABS: ANION GAP 17.9 mmol/L (8-16); CALCIUM 8.8 mg/dL (8.5-10.1); CARBON DIOXIDE 22.7 mmol/L (21.0-32.0); CREATININE - SERUM 1.6 mg/dL (0.6-1.3); POTASSIUM - SERUM 4.6 mmol/L (3.5-5.1)
--- NOTE | 2016-09-29 11:50 | NUR ---
FEMSTOP DCD WITHOUT BLEEDING OR HEMATOMA NOTED. WILL MONITOR.
--- NOTE | 2016-09-29 12:19 | NUR ---
PRE-OPS GIVEN. TO DIRECTOR ALUMNI RELATIONS BY BED.
[2016-09-29 13:15] VITALS: Ht 170.2 cm; Wt 72.6 kg
--- NOTE | 2016-09-29 13:37 | NUR ---
BACK FROM FINISHED CARPET INSPECTOR. VS WNL. RIGHT GROIN STABLE WITH FEMSTOP INTACT. WILL MONITOR.
[2016-09-29 14:48] VITALS: BP 127/61
--- NOTE | 2016-09-29 18:03 | NUR ---
BED REST UP. GROIN STABLE.
--- NOTE | 2016-09-29 19:39 | NUR ---
RESUMED CARE OF PT, LYING IN BED RESPIRATIONS EVEN AND UNLABORED ON 2LPM VIA NC. 67 SR WITH BBB ON TELEMETRY. RIGHT GROIN CDI, PEDAL PULSE WEAK. CALL LIGHT IN REACH. WILL CONTINUE TO MONITOR. SEE NURSE ASSESSMENT.
[2016-09-29 21:50] VITALS: BP 130/58
--- NOTE | 2016-09-29 23:24 | NUR ---
LYING IN BED, CALL LIGHT IN REACH.
[2016-09-30] VITALS: BP 88/66
--- NOTE | 2016-09-30 | NUR ---
PT STATES HE FEELS LIKE HIS SUGAR IS LOW, FSBS 63. ORANGE JUICE, BRIANNE CRACKERS AND PEANUT BUTTER GIVEN.
--- NOTE | 2016-09-30 00:32 | NUR ---
MUNITIONS FACTORY WORKER AT BEDSIDE TO OBTAIN VITALS, CALL LIGHT IN REACH. WILL CONTINUE WITH PLAN OF CARE. 60 SR ON TELEMETRY
[2016-09-30 01:18] VITALS: BP 106/46
--- NOTE | 2016-09-30 04:13 | NUR ---
CONSENTS OBTAINED FOR [facility] TODAY. NO CHANGES FROM PREVIOUS ASSESSMENT, WILL CONTINUE TO MONITOR.
[2016-09-30 05:35] VITALS: BP 126/62
--- NOTE | 2016-09-30 07:38 | NUR ---
ASSESSMENT DONE. DENIES NEEDS. FAMILY AT SIDE.
[2016-09-30 08:00] VITALS: BP 117/55
--- NOTE | 2016-09-30 08:22 | NUR ---
TO DATA CONTROL CLERK SUPERVISOR PER BED
--- NOTE | 2016-09-30 08:46 | NUR ---
IN SKID STRAPPER FOR ANGEOGRAM. WILL CONT. PLAN OF CARE.
--- NOTE | 2016-09-30 10:30 | NUR ---
RETURN FROM DRIVER COURIER PER BED. LT GROIN WITH FEMOSTOP , PULSE PALP. RT LEG POPLITEAL DRSG C/D, PULSE PALP, CALF MEASURES 15 INCHIES. AT SIDE.
[2016-09-30 12:00] VITALS: BP 84/50
--- NOTE | 2016-09-30 12:30 | NUR ---
B/P 84/50. IV FLUIDS INFUSING. FAMILY AT SIDE. RT CALF REMAINS AT 15 IN.
--- NOTE | 2016-09-30 13:20 | NUR ---
C/O RLE PAIN. NORCO 10 1 PO GIVEN.
--- NOTE | 2016-09-30 14:23 | NUR ---
CONT TO C/O RLE PAIN. DR MOONEY NOTIFYED. ORDER RECIVED FOR MS. RT CALF REMAINS AT 15 IN.
--- NOTE | 2016-09-30 14:45 | NUR ---
EYES CLOSED WITH SNORING RESP.
--- NOTE | 2016-09-30 15:45 | NUR ---
SON AT SIDE. WITHOUT DISTRESS NOTED. B/P 124/58.
[2016-09-30 15:51] VITALS: BP 142/70
--- NOTE | 2016-09-30 19:00 | NUR ---
REPORT RECIEVED, CHECKED IN ON PATIENT, WAS SLEEPING, AT BEDSIDE. RR EVEN AND UNLABORED, NO S&S OF ACUTE DISTRESS NOTED. BED LOW AND LOCKED, CALL LIGHT IN REACH. WILL CPOC.
--- NOTE | 2016-09-30 19:40 | NUR ---
INITIAL ASSESSMENT COMPLETE, PLEASE SEE FLOW SHEETS FOR DETAILS. ATTEMPTED TO GET UP TO RR, WAS DIZZY AND SAT BACK DOWN ON BED. DISORIENTED TO TIME. STATED FULL NAME AND DATE OF AND CURRENT CITY. WILL FIND BEDSIDE CAMODE FOR PATIENT TO USE. C/O STOMACH PAIN BUT CANNOT GIVE RATE OR TYPE. BED LOW AND LOCKED WITH FAMILY AT BEDSIDE. WILL CPOC.
--- NOTE | 2016-09-30 20:33 | NUR ---
CHECKED BS SAID RUNS LOW, WAS 225, WILL RECHECK AND INTERVENE IF NEEDED.
--- NOTE | 2016-09-30 22:43 | NUR ---
POSTPARTUM RN REPORTED BP AT 88/66, FSBS CHECKED -225 AT 2020, GAVE 100ML BOLUS. JUST RECHECKED BP AND FSBS, BP 108/70 AND FSBS 221. STATES THAT FSBS NORMALLY IN 90'S AND TENDS TO DROP, RECENTLY DX WITH DM BY GENERAL PHYSICIAN PER . PAGING PUBLICITY MANAGER .
--- NOTE | 2016-09-30 22:54 | NUR ---
SPOKE TO DR MOONEY, HE SAID THAT HE WANTS TO JUST MONITOR THE PATIENT ATT. NOT TO DO ANYTHING. WILL CALL AGAIN FOR ANY FURTHER CHANGES.
[2016-10-01] VITALS (9 sets, daily range): BP systolic 64–157; BP diastolic 12–46
--- NOTE | 2016-10-01 01:32 | NUR ---
SLEEPING, RR EVEN AND UNLABORED. NO S&S OF DISTRESS NOTED. BED LOW AND LOCKED, CALL LIGHT IN REACH. WILL CPOC.
[2016-10-01 05:36] LABS: HEMATOCRIT 32.8 % (42.0-54.0); HEMOGLOBIN 10.4 g/dL (13.5-17.5)
[2016-10-01 05:51] LABS: CALCIUM 7.7 mg/dL (8.5-10.1)
--- NOTE | 2016-10-01 06:00 | NUR ---
PT RECIEVED. CYANOTIC AGONAL BREATHING, NO PULSE PALP. CODE CALLED CPR ADM PT BAGGED AT 15L, O2 SAT 95% CODE BEGAN REFER TO FLOW SHEET.
[2016-10-01 06:15] LABS: CREATININE - SERUM 3.5 mg/dL (0.6-1.3)
[2016-10-01 06:16] LABS: ANION GAP 31.1 mmol/L (8-16); CARBON DIOXIDE 8.4 mmol/L (21.0-32.0); POTASSIUM - SERUM 6.5 mmol/L (3.5-5.1)
--- NOTE | 2016-10-01 06:40 | NUR ---
FAMILY AT BEDSIDE GIVEN UPDATE.
--- NOTE | 2016-10-01 06:55 | NUR ---
0345 CHECKED PERIPHERAL PULSES AND WERE WEAK BUT PALPABLE. 0430 TROUSSEAU CONSULTANT INTO ROOM FOR VITAL SIGNS, COULD NOT GET READING FOR SPO2%. GOT A HANDHELD UNIT, AND SPO2 @ 65%,INCREASED 02 TO 4LNC @ 0435, PAGED RESPIRATORY AT 0440. RT INCREASED NC TO 6L, AND LOOKED FOR SPO2% AGAIN AND FOUND AT 72%. RT CHANGED TO OXYMIZER AT 15L. EKG. [address] MOONEY TO UPDATE ON PATIENT STATUS. ORDERS RECIEVED. 0515 LAB AND RT AND MYSELF IN ROOM, PERIPHERAL PULSES NOT PALPABLE OR ABLE TO BEE HEARD ON DOPPLER. EXTREMETIES COLD, NAIL BED BLUE. RT TO DRAW ABG'S. RESULTS RECIEVED AND DR MOONEY PAGED AT 0555 ORDERS RECIEVED. TRANSFERING PATIENT TO CVICU, AND ARRIVED ON UNIT AT 0555, PATIENT WAS TRANSFERED TO ICU BED AND BECAME ASYSTOLE AND CEASED RR. CINTIA BLUE CALLED, CPR STARTED, CRASH CART IN ROOM AND HOOKED TO PADS. CALLED ER FOR INTUBATION, GAVE REPORT TO ER DOC UPON ARRIVAL. SPOKE WITH FAMILY TO GIVE UPDATE ON SITUATION. 0505 JORDAN PLACED.
--- NOTE | 2016-10-01 07:30 | NUR ---
SHIFT ASSESSMENT VIA FLOWSHEET, SEE FOR DETAILS.
--- NOTE | 2016-10-01 07:54 | NUR ---
CINTIA ZAMORANO INITIATED, ACLS PROTOCOL FOLLOWED. SEE CINTIA ZAMORANO RECORD FOR MORE DETAILS.
--- NOTE | 2016-10-01 08:25 | NUR ---
PT PULSELESS, CPR INITIATED, CODE BLUE ACTIVATED. ACLS PROTOCOL FOLLOWED.
--- NOTE | 2016-10-01 08:29 | NUR ---
CODE EFFORTS STOPPED PER DR MOONEY FOLLOWING DISCUSSION WITH PT'S FAMILY.
--- NOTE | 2016-10-01 09:00 | NUR ---
PT PRONOUNCED BY DR MOONEY, RECORD OF SIGNED.
--- NOTE | 2016-10-01 09:30 | NUR ---
SPOKE WITH LIDIA AT [facility], PT DOES NOT MEET CRITERIA.
--- NOTE | 2016-10-01 09:35 | NUR ---
SPOKE WITH HOME REGARDING PT PICKUP.
--- NOTE | 2016-10-01 10:20 | NUR ---
PT PICKED UP BY [facility] REPRSENTATIVE. FAMILY NOT PRESENT AT THIS TIME.
--- NOTE | 2016-10-06 10:34 | NUR ---
Per CMS protocol, restraint report logged into data base.
== END 2016-10-01 09:00 | DRG 247 ==
LOC: OBSVTIME → D.ER 13:09 → D.CVICU 16:00 → OBSVTIME 16:25 → D.M2 16:25 → D.ER 16:25 → D.M2 16:25 → EDSTATUS 09-29 14:00 → D.CVICU 10-01 05:45 → D.M2 10-01 05:45 → D.CVICU 10-01 06:18 → D.ER 10-01 06:18 → D.CVICU 10-01 06:18 → D.M2 10-01 09:00 → D.CVICU 10-01 09:00
PROVIDERS: Emergency Medicine; Internal Medicine Interventional Cardiology; Nurse Practitioner Family; ADMIT Internal Medicine Cardiovascular Disease
PROC: 027034Z Dilation of Coronary Artery, One Artery with Drug-eluting Intraluminal Device, Percutaneous Approach (ICD-10-PCS; 2016-09-29)
PROC: 4A023N7 Measurement of Cardiac Sampling and Pressure, Left Heart, Percutaneous Approach (ICD-10-PCS; 2016-09-29)
PROC: B2121ZZ Fluoroscopy of Single Coronary Artery Bypass Graft using Low Osmolar Contrast (ICD-10-PCS; 2016-09-29)
PROC: B2111ZZ Fluoroscopy of Multiple Coronary Arteries using Low Osmolar Contrast (ICD-10-PCS; 2016-09-29)
PROC: B2151ZZ Fluoroscopy of Left Heart using Low Osmolar Contrast (ICD-10-PCS; 2016-09-29)
PROC: B240ZZ3 Ultrasonography of Single Coronary Artery, Intravascular (ICD-10-PCS; 2016-09-29)
PROC: B4101ZZ Fluoroscopy of Abdominal Aorta using Low Osmolar Contrast (ICD-10-PCS; 2016-09-29)
PROC: 027034Z Dilation of Coronary Artery, One Artery with Drug-eluting Intraluminal Device, Percutaneous Approach (ICD-10-PCS; principal; 2016-09-29 14:00)
PROC: 047L3DZ Dilation of Left Femoral Artery with Intraluminal Device, Percutaneous Approach (ICD-10-PCS; 2016-09-29 14:00)
PROC: 027034Z Dilation of Coronary Artery, One Artery with Drug-eluting Intraluminal Device, Percutaneous Approach (ICD-10-PCS; 2016-09-30)
PROC: 047M3DZ Dilation of Right Popliteal Artery with Intraluminal Device, Percutaneous Approach (ICD-10-PCS; 2016-09-30)
PROC: 5A12012 Performance of Cardiac Output, Single, Manual (ICD-10-PCS; 2016-10-01)
PROC: 5A1935Z Respiratory Ventilation, Less than 24 Consecutive Hours (ICD-10-PCS; 2016-10-01)
PROC: 0BH17EZ Insertion of Endotracheal Airway into Trachea, Via Natural or Artificial Opening (ICD-10-PCS; 2016-10-01)
PROC: 0T9B70Z Drainage of Bladder with Drainage Device, Via Natural or Artificial Opening (ICD-10-PCS; 2016-10-01)
DX: I25.110 Atherosclerotic heart disease of native coronary artery with unstable angina pectoris (principal); T82.855A Stenosis of coronary artery stent, initial encounter; N17.9 Acute kidney failure, unspecified; I10 Essential (primary) hypertension; E11.9 Type 2 diabetes mellitus without complications; Z86.73 Personal history of transient ischemic attack (TIA), and cerebral infarction without residual deficits; Y84.0 Cardiac catheterization as the cause of abnormal reaction of the patient, or of later complication, without mention of misadventure at the time of the procedure; I70.213 Atherosclerosis of native arteries of extremities with intermittent claudication, bilateral legs; I46.9 Cardiac arrest, cause unspecified; Z66 Do not resuscitate; E78.5 Hyperlipidemia, unspecified